=== PATIENT | male | born 1955 | race Caucasian/White ===

== ENCOUNTER 2016-05-02 10:24 | Day surgery (SDC) | payer OTHER ==
[2016-04-30 15:35] VITALS: BMI 31.3
[~2016-05-02 10:24] MED LIST: ALPRAZolam 0.25 MG TAB PO PRN; ASPIRIN 325 MG TAB PO STA; SODIUM CHLORIDE 0.9% 1,000 ML in EMPTY BAG 1 BAG IV ONE
[2016-05-02] MEDS ORDERED: ASPIRIN 81 MG CHEW ONE (10:50)
[2016-05-02] MEDS ORDERED: SODIUM CHLORIDE 0.9% 1,000 ML IV ONE (10:50)
[2016-05-02] MEDS ORDERED: HYDROmorphone 1 MG/ML 1 ML SYRINGE ONE (10:59)
[2016-05-02] MEDS ORDERED: HYDROmorphone 1 MG/ML 1 ML SYRINGE IVP STA (11:00)
[2016-05-02 11:12] LABS: INR 1.3 (<1.1)
[2016-05-02] MEDS ORDERED: IV FLUID CONTINUATION 1,000 ML IV ONE (11:20)
[2016-05-02] MEDS ORDERED: MIDAZOLAM 2 MG/2 ML VIAL IV ONE (11:41)
[2016-05-02] MEDS ORDERED: HYDROmorphone 2 MG/ML 1 ML SYRINGE IV ONE (11:46)
[2016-05-02] MEDS ORDERED: LIDOCAINE 2% INJ 20 MG/ML SQ ONE (11:46)
[2016-05-02] MEDS ORDERED: IODIXANOL 320 MG/ML 100 ML INTRAARTER ONE (12:20)
[2016-05-02] MEDS ORDERED: SODIUM CHLORIDE 0.9% 1,000 ML IV SCH (12:30)
[2016-05-02 13:36] VITALS: RESP 16; TEMP 97.6
[2016-05-02] MEDS ORDERED: HYDROmorphone 1 MG/ML 1 ML SYRINGE IVP PRN (14:59)
[2016-05-02 15:47] VITALS: PULSE 65
[2016-05-02 16:18] VITALS: BP 138/76
--- NOTE | 2016-05-02 21:39 | PCN ---
DATE OF PROCEDURE: 05/02/2016 PERFORMING PHYSICIAN: Martinez Koenig M.D., laborer plumbing. PROCEDURES PERFORMED: 1. Abdominal aortogram. 2. Bilateral lower extremity runoff. 3. Selective right superficial femoral artery angiogram. 4. Selective right mypfl-xvo-mmip angiogram. INDICATION: This is a pleasant 60-year-old gentleman who is known to have severe peripheral arterial disease who underwent several months ago angioplasty and stenting of the right SFA. He started experiencing right leg discomfort again and he underwent an arterial duplex study which showed in-stent restenosis of the right SFA stent. APPROACH: Left common femoral artery. COMPLICATIONS: None. LEVEL OF SEDATION: Moderate. PROCEDURE DESCRIPTION: After obtaining informed consent, the patient was brought to the cardiac clinical laboratory medical director. The left common femoral artery was cannulated using micropuncture technique. The micropuncture wire passed easily, then I placed a 5 Mongolian sheath in the left common femoral artery. Subsequently I did an abdominal aortogram and bilateral lower extremity runoff using a 5 Mongolian pigtail catheter which was initially placed at the level of the renal arteries, then it was pulled above the bifurcation of the aorta to right and left common iliac arteries. After that I selected the right SFA using 5 Mongolian RIM catheter with 0.035 Advantage wire. I did selective right SFA angiogram and selective right terzh-hmn-wwmf angiogram. SELECTIVE PERIPHERAL ANGIOGRAM: 1. Abdominal aorta appeared to be calcified with mild to moderate diffuse disease only. 2. Common iliac arteries. The right and left common iliac arteries appeared to have mild disease only. 3. Internal iliac arteries. The right and left internal iliac arteries appeared to be patent. 4. External iliac arteries. The right and left external iliac arteries appeared to have mild disease only. 5. SFA. The right SFA appeared to have severe in-stent restenosis involving the proximal portion. The left SFA is occluded from the ostium and reconstitutes by the popliteal. 6. Popliteals. The right popliteal just distal to the stent appeared to have another tight lesion in the range of 70% to 80%. The left popliteal appeared to have a lesion in the range of 70%. 7. Below the knee. The vessels below the knee were poorly visualized. I did selective right ktqah-aow-drpj angiogram. There was one-vessel runoff below the knee with posterior tibia artery, which appeared to have a tight lesion in the proximal portion. CONCLUSION: 1. Mild to moderate aortoiliac disease. 2. Severe in-stent restenosis involving the right SFA stent. 3. Severe disease involving the right popliteal. 4. One-vessel runoff below the knee on the right side with posterior tibial artery which has severe disease in the proximal portion of it. POST-PROCEDURE MANAGEMENT: The patient will be scheduled to undergo EXTENSION SERVICE SPECIALIST of the right SFA in the next week or so.
--- NOTE | 2016-05-05 12:28 | IR ---
EXAMINATION TYPE: IR angio abdominal w runoff DATE OF EXAM: 05/02/2016 12:57 PM COMPARISON: NONE HISTORY: Peripheral vascular occlusive disease. Fluoroscopy was applied to the referring clinician. See dictated report from cardiology.
== END 2016-05-02 18:56 | disposition home or self-care (01) ==
LOC: CATHCVL 10:24 → 3OBS 12:35 → CATHCVL 18:56
PROVIDERS: ATTEND Internal Medicine Interventional Cardiology
DX: I70.211 Atherosclerosis of native arteries of extremities with intermittent claudication, right leg (principal); I48.2 Chronic atrial fibrillation; T82.856A Stenosis of peripheral vascular stent, initial encounter; E78.5 Hyperlipidemia, unspecified; C92.Z0 Other myeloid leukemia not having achieved remission; E78.2 Mixed hyperlipidemia; I10 Essential (primary) hypertension; I25.119 Atherosclerotic heart disease of native coronary artery with unspecified angina pectoris; Z87.891 Personal history of nicotine dependence; Z82.49 Family history of ischemic heart disease and other diseases of the circulatory system; Z79.02 Long term (current) use of antithrombotics/antiplatelets; Z79.82 Long term (current) use of aspirin; Z79.899 Other long term (current) drug therapy; Z95.5 Presence of coronary angioplasty implant and graft; Y71.2 Prosthetic and other implants, materials and accessory cardiovascular devices associated with adverse incidents
CPT/HCPCS: 99156; 99157 ×2; 36247; 75625; 75716; 85610; C1769 ×5; C1894; J2001; J2250; J1170 ×2; Q9967

== ENCOUNTER 2016-05-14 12:48 | Day surgery (SDC) | payer OTHER ==
[2016-05-12 10:36] VITALS: BMI 32.1
[2016-05-14] MEDS ORDERED: HYDROmorphone 1 MG/ML 1 ML SYRINGE ONE (13:29)
[2016-05-14 13:37] LABS: Anisocytosis Slight; Basophils % (A) 0 %; CH 29.7; CHCM 32.2; Eosinophils # (A) 0.1 k/uL (0-0.7); Eosinophils % (A) 2 %; HCT 47.2 % (39.0-53.0); HDW 2.62; HGB 15.3 gm/dL (13.0-17.5); Luc # (Auto) 0.23; Luc % (Auto) 3; Lymphocytes # (A) 1.4 k/uL (1.0-4.8); Lymphocytes % (A) 17 %; MCHC 32.3 g/dL (31.0-37.0); MCV 92.9 fL (80.0-100.0); Mean Platelet Volume 6.6; Monocytes # (A) 0.5 k/uL (0-1.0); Monocytes % (A) 6 %; Neutrophils # (A) 5.9 k/uL (1.3-7.7); Neutrophils % (A) 72 %; RBC 5.09 m/uL (4.30-5.90); RDW 16.8 % (11.5-15.5); WBC 8.1 k/uL (3.8-10.6); WBC (Perox) 8.18
[2016-05-14 13:39] LABS: INR 1.2 (<1.1); Prothrombin Time 11.9 sec (9.0-12.0)
[2016-05-14 14:16] LABS: Anion Gap 10 mmol/L; Blood Urea Nitrogen 23 mg/dL (9-20); Calcium 9.5 mg/dL (8.4-10.2); Carbon Dioxide 24 mmol/L (22-30); Chloride 104 mmol/L (98-107); Glucose 88 mg/dL (74-99); Non-African American GFR(MDRD) >60 (>60 ml/min/1.73 sqM); Sodium 138 mmol/L (137-145)
[2016-05-14] MEDS ORDERED: MIDAZOLAM 2 MG/2 ML VIAL IVP ONE (14:35)
[2016-05-14] MEDS ORDERED: LIDOCAINE 2% INJ 20 MG/ML SQ ONE (14:42)
[2016-05-14] MEDS: HYDROmorphone 2 MG/ML 1 ML SYRINGE IV ONE ×2 (14:45→15:22)
[2016-05-14 14:47] LABS: Potassium 5.6 mmol/L (3.5-5.1)
[2016-05-14] MEDS ORDERED: HEPARIN SODIUM 1,000 UNIT/ML VIAL IV ONE (14:49)
[2016-05-14] MEDS: NITROGLYCERIN 1000MCG/10ML SYRINGE INTRAARTER ONE ×2 (15:21→16:09)
[2016-05-14] MEDS ORDERED: CLOPIDOGREL 75 MG TAB PO ONE (16:06)
[2016-05-14] MEDS ORDERED: niCARdipine Syringe (1,000 mcg/10 mL) INTRACORON ONE (16:10)
[2016-05-14] MEDS ORDERED: NON-FORMULARY DRUG (Sildenafil Citrate [Viagra] 100 MG) PO PRN (16:24)
[2016-05-14] MEDS ORDERED: IODIXANOL 320 MG/ML 100 ML INTRAARTER ONE (16:25)
[2016-05-14] MEDS ORDERED: SODIUM CHLORIDE 0.9% 1,000 ML IV SCH (16:30)
[2016-05-14] MEDS ORDERED: amLODIPine 5 MG TAB PO PRN (18:41)
[2016-05-14] MEDS: HYDROmorphone 1 MG/ML 1 ML SYRINGE IVP PRN (19:15)
[2016-05-14] MEDS ORDERED: METOPROLOL TARTRATE 12.5 MG TAB PO SCH (21:00)
[2016-05-14] MEDS ORDERED: ATORVASTATIN 20 MG TAB PO SCH (21:00)
[2016-05-14] MEDS: GABAPENTIN 400 MG CAP PO SCH (21:40)
[2016-05-14] MEDS: CIPROFLOXACIN HCL 500 MG TAB PO SCH (21:41)
[2016-05-14] MEDS ORDERED: ATROPINE SULFATE 0.1 MG/ML 10ML SYRINGE ONE (22:15)
[2016-05-14] MEDS ORDERED: NITROGLYCERIN SL TABS 0.4 MG TAB SUBLINGUAL STA (22:32)
[2016-05-14] MEDS ORDERED: HYDROmorphone 1 MG/ML 1 ML SYRINGE IVP STA (22:32)
[2016-05-15] MEDS: HYDROmorphone 1 MG/ML 1 ML SYRINGE IVP PRN (00:59)
[2016-05-15 03:41] VITALS: PULSE 98
--- NOTE | 2016-05-15 06:13 | PCN ---
DATE OF PROCEDURE: 05/14/2016 PERFORMING PHYSICIAN: Martinez Koenig MD, checker product design. PROCEDURE PERFORMED: 1. Atherectomy of the right popliteal using the CSI device. 2. Successful stenting of the proximal right popliteal using 6.0 x 40 mm self-expandable stent with good angiographic results. 3. Successful balloon angioplasty of the right superficial femoral artery using 6.0 mm x 150 and 6.0 x 120 mm drug-coated balloon with good angiographic results. 4. Selective right SFA angiogram. 5. Selective right popliteal angiogram. 6. Selective right vbcxe-frs-jvhw angiogram. 7. Selective left common femoral artery angiogram. INDICATION: This is a pleasant, 60-year-old gentleman who underwent an angioplasty and stenting of the right SFA several months ago started experiencing right leg discomfort again. He underwent a peripheral angiogram which showed severe in-stent restenosis of the right SFA as well as severe de kellie coronary artery disease involving the right popliteal. He was brought today to undergo an intervention on these 2 arteries. APPROACH: Left common femoral artery. COMPLICATIONS: None. LEVEL OF SEDATION: Conscious sedation was performed and it was for an 1 hour and 40 minutes. PROCEDURE DESCRIPTION: After obtaining an informed consent, the patient was brought to the cardiac lab support tech. The left common femoral artery was cannulated using micropuncture technique under ultrasound guidance. The micropuncture wire passed easily, then I placed an 11 cm 6-Niuean sheath in the left common femoral artery. At that point, anticoagulation was initiated using heparin and the patient was given a total of 10,000 units of heparin IV. Subsequently, I did select the right SFA using a 5-Niuean rim catheter with 0.035 advantage wire. After that, I did exchange my 11 cm sheath into 70 cm sheath, which was 6-Niuean sheath using the advantage wire. The tip of the sheath was positioned in the right external iliac artery. After that, I did exchange my 0.035 advantage wire into a 0.014 Viper wire using an 0.035 CXI catheter. Subsequently, I did selective right SFA angiogram and selective right popliteal angiogram and selective right asckm-zdd-hpym angiogram. Subsequently, I did an atherectomy of the right popliteal using the CSI device where I did atherectomy under low, medium and high speed. Then I did balloon angioplasty using 4.0 x 40 mm AngioSculpt balloon. The following angiogram showed inadequate angiographic results. I decided to stent that area. So I used 6.0 x 40 mm PTX coated balloon expandable stent where the stent was positioned under fluoroscopy guidance and it was deployed. After that, I did balloon angioplasty of the right SFA, where the patient has severe in-stent restenosis where I did balloon angioplasty initially using 6.0 x 200 mm balloon. Then I used 6.0 x 150 and 6.0 x 120 drug-coated balloon. The following angiogram showed an excellent angiographic result without perforation and without dissection with a good flow. Subsequently, I did exchange my 70 cm 6-Niuean sheath into 11 cm 6-Niuean sheath using the advantage wire. Then I did selective left common femoral artery angiogram. The procedure was completed without any complication. POSTPROCEDURE MANAGEMENT: 1. Dual antiplatelet therapy. 2. Risk factor modification. 3. If the patient continues to be symptomatic, I will consider doing an angioplasty of the ostial right profunda and open the right posterior tibial arteries.
--- NOTE | 2016-05-15 06:15 | LTR ---
May 14, 2016 [facility] RE: TobyThomas estrella Primo Dear Joshua: Mr. Thomas Redman underwent successful balloon angioplasty of the right femoral artery and right popliteal with a good angiographic result and without any complication. Thank you for allowing me to participate in his care. Sincerely, TARAH GRANDE MD
[2016-05-15 06:27] LABS: Anisocytosis Slight; Basophils % (A) 0 %; CH 29.5; CHCM 31.3; Eosinophils # (A) 0.1 k/uL (0-0.7); Eosinophils % (A) 1 %; HCT 48.5 % (39.0-53.0); HDW 2.55; HGB 15.2 gm/dL (13.0-17.5); Hypochromasia Slight; Luc # (Auto) 0.24; Luc % (Auto) 2; Lymphocytes # (A) 1.4 k/uL (1.0-4.8); Lymphocytes % (A) 14 %; MCH 29.6 pg (25.0-35.0); MCHC 31.3 g/dL (31.0-37.0); MCV 94.7 fL (80.0-100.0); Mean Platelet Volume 6.6; Monocytes # (A) 0.7 k/uL (0-1.0); Monocytes % (A) 7 %; Neutrophils # (A) 7.8 k/uL (1.3-7.7); Neutrophils % (A) 76 %; RBC 5.13 m/uL (4.30-5.90); RDW 16.8 % (11.5-15.5); WBC 10.3 k/uL (3.8-10.6); WBC (Perox) 10.73
[2016-05-15 06:48] LABS: Anion Gap 10 mmol/L; Blood Urea Nitrogen 17 mg/dL (9-20); Calcium 9.3 mg/dL (8.4-10.2); Carbon Dioxide 29 mmol/L (22-30); Chloride 103 mmol/L (98-107); Glucose 91 mg/dL (74-99); Non-African American GFR(MDRD) >60 (>60 ml/min/1.73 sqM); Potassium 4.4 mmol/L (3.5-5.1); Sodium 142 mmol/L (137-145)
[2016-05-15] MEDS ORDERED: HYDROmorphone 1 MG/ML 1 ML SYRINGE IVP STA (07:02)
[2016-05-15] MEDS: GABAPENTIN 400 MG CAP PO SCH (08:21)
[2016-05-15] MEDS: CIPROFLOXACIN HCL 500 MG TAB PO SCH (08:21)
[2016-05-15] MEDS ORDERED: ASPIRIN 81 MG CHEW PO SCH (09:00)
[2016-05-15] MEDS ORDERED: CLOPIDOGREL 75 MG TAB PO SCH (09:00)
[2016-05-15 10:26] VITALS: BP 151/82; RESP 18; TEMP 97.1
--- NOTE | 2016-05-15 15:20 | IR ---
Fluoroscopy HISTORY: Pain 28.4 minutes fluoroscopy time supplied to the referring clinician. 556 intraoperative C-arm images d ocument the procedure. See dictated report from cardiology.
--- NOTE | 2016-05-17 08:07 | DS ---
DATE OF ADMISSION: 05/14/2016 DATE OF DISCHARGE: 05/15/2016 BRIEF HISTORY: This is a very pleasant 60-year-old gentleman who sees Dr. Saima Zayas as an outpatient, who also I follow-up with regarding BAV who underwent several months ago and as a matter of fact in November 2015 successful crossing chronic total occlusion of the right superficial femoral artery along with successful stenting of the right SFA with a good angiographic results. Patient has done well until about a few weeks ago when he started experiencing resting pain in the right foot. He underwent a peripheral angiogram which showed severe in-stent restenosis involving the right SFA as well as severe de kellie coronary artery disease involving the right popliteal. He was admitted to the hospital and underwent successful balloon angioplasty of the right SFA along with successful stenting of the right SFA as well. The procedure was performed from left groin, which is soft and nontender and without any bruises. The patient is going to be discharged home on dual antiplatelet therapy and I will follow up with the patient next week in the office.
== END 2016-05-15 11:50 | disposition home or self-care (01) ==
LOC: CATHCVL 12:48 → 6SEL 16:19 → CATHCVL 05-15 11:50
PROVIDERS: ATTEND Internal Medicine Interventional Cardiology
DX: I70.211 Atherosclerosis of native arteries of extremities with intermittent claudication, right leg (principal); Z95.820 Peripheral vascular angioplasty status with implants and grafts; I99.9 Unspecified disorder of circulatory system; Z82.49 Family history of ischemic heart disease and other diseases of the circulatory system; I10 Essential (primary) hypertension; E78.5 Hyperlipidemia, unspecified; Z87.891 Personal history of nicotine dependence; Z79.2 Long term (current) use of antibiotics; Z79.02 Long term (current) use of antithrombotics/antiplatelets; Z79.82 Long term (current) use of aspirin; Z79.899 Other long term (current) drug therapy
CPT/HCPCS: 37227; 80048 ×2; 85025 ×2; 85610; 99152; 99153 ×6; C1894 ×2; C1714; C1769 ×6; C1725 ×3; C2623 ×2; C1874; J2001; J2250; J1170 ×3; Q9967; J1644

== ENCOUNTER 2016-06-11 12:28 | Observation (INO) | payer OTHER ==
[2016-06-10 10:00] VITALS: BMI 31.3
[2016-06-11 13:11] LABS: INR 1.6 (<1.1); Prothrombin Time 15.6 sec (9.0-12.0)
[2016-06-11] MEDS ORDERED: HYDROmorphone 1 MG/ML 1 ML SYRINGE ONE (13:27)
[2016-06-11] MEDS: fentaNYL (PF) 50 MCG/ML 2 ML AMP IV ONE ×2 (14:45→16:28)
[2016-06-11] MEDS ORDERED: MIDAZOLAM 2 MG/2 ML VIAL IV ONE (14:46)
[2016-06-11] MEDS ORDERED: LIDOCAINE 2% INJ 20 MG/ML SQ ONE (14:56)
[2016-06-11] MEDS: HYDROmorphone 2 MG/ML 1 ML SYRINGE IV ONE ×2 (14:56→15:08)
[2016-06-11] MEDS: NITROGLYCERIN 1000MCG/10ML SYRINGE INTRAARTER ONE ×6 (15:37→16:47)
[2016-06-11] MEDS: niCARdipine Syringe (1,000 mcg/10 mL) IV ONE ×5 (15:49→16:47)
[2016-06-11] MEDS ORDERED: NITROGLYCERIN 1000MCG/10ML SYRINGE INTRAARTER ONE (16:40)
[2016-06-11] MEDS ORDERED: IOHEXOL 350 MG/ML 100 ML BOTTLE INJ ONE (16:48)
[2016-06-11] MEDS ORDERED: DOCUSATE 100 MG CAP PO PRN (16:58)
[2016-06-11] MEDS ORDERED: ACETAMINOPHEN TAB 500 MG TAB PO PRN (16:58)
[2016-06-11] MEDS ORDERED: NON-FORMULARY DRUG (Sildenafil Citrate [Viagra] 100 MG) PO PRN (16:58)
[2016-06-11] MEDS ORDERED: CLOPIDOGREL 75 MG TAB PO ONE (17:07)
[2016-06-11] MEDS ORDERED: SODIUM CHLORIDE 0.9% 1,000 ML IV SCH (17:15)
[2016-06-11] MEDS: HYDROmorphone 1 MG/ML 1 ML SYRINGE IVP PRN ×3 (19:54→23:59)
[2016-06-11 20:01] VITALS: RESP 16
[2016-06-11] MEDS ORDERED: ATORVASTATIN 20 MG TAB PO SCH (21:00)
[2016-06-11] MEDS ORDERED: CLOPIDOGREL 75 MG TAB PO SCH (21:00)
[2016-06-11] MEDS: GABAPENTIN 400 MG CAP PO SCH (22:05)
[2016-06-11] MEDS: METOPROLOL TARTRATE 12.5 MG TAB PO SCH (22:05)
[2016-06-11] MEDS ORDERED: ATROPINE SULFATE 0.1 MG/ML 10ML SYRINGE ONE (23:41)
[2016-06-12] MEDS: HYDROmorphone 1 MG/ML 1 ML SYRINGE IVP PRN ×4 (01:59→09:45)
[2016-06-12 06:18] LABS: Anisocytosis Slight; Basophils % (A) 0 %; CH 30.4; Eosinophils # (A) 0.1 k/uL (0-0.7); Eosinophils % (A) 1 %; HDW 2.58; HGB 14.7 gm/dL (13.0-17.5); Luc # (Auto) 0.31; Luc % (Auto) 3; Lymphocytes # (A) 1.8 k/uL (1.0-4.8); Lymphocytes % (A) 17 %; MCH 29.9 pg (25.0-35.0); MCHC 31.2 g/dL (31.0-37.0); MCV 95.7 fL (80.0-100.0); Mean Platelet Volume 6.6; Monocytes # (A) 0.6 k/uL (0-1.0); Monocytes % (A) 6 %; Neutrophils # (A) 7.8 k/uL (1.3-7.7); Neutrophils % (A) 74 %; RBC 4.91 m/uL (4.30-5.90); RDW 16.9 % (11.5-15.5); WBC 10.6 k/uL (3.8-10.6); WBC (Perox) 11.07
[2016-06-12 06:29] LABS: Anion Gap 13 mmol/L; Blood Urea Nitrogen 17 mg/dL (9-20); Calcium 9.8 mg/dL (8.4-10.2); Carbon Dioxide 31 mmol/L (22-30); Chloride 100 mmol/L (98-107); Glucose 100 mg/dL (74-99); Non-African American GFR(MDRD) >60 (>60 ml/min/1.73 sqM); Potassium 3.8 mmol/L (3.5-5.1); Sodium 144 mmol/L (137-145)
--- NOTE | 2016-06-12 06:54 | PTCA ---
DATE OF SERVICE: 06/11/2016 PERCUTANEOUS PERIPHERAL INTERVENTION PERFORMING PHYSICIAN: Martinez Koenig MD, construction engineer. PROCEDURE PERFORMED: 1. Selective right SFA angiogram. 2. Selective right popliteal angiogram. 3. Selective right posterior tibial artery angiogram. 4. Successful balloon angioplasty of the distal right posterior tibial artery. 5. Successful stenting of the proximal right posterior tibial artery. 6. Selective left common femoral artery angiogram. INDICATION: This is a pleasant a 60-year-old gentleman who was struggling with critical limb ischemia and resting pain involving the right foot. He underwent successful balloon angioplasty and stenting of the right SFA and he was brought today to undergo balloon angioplasty of the right posterior tibial artery. APPROACH: Left common femoral artery. COMPLICATIONS: None. LEVEL OF SEDATION: Moderate with sedation length of 2 hours and 15 minutes. PROCEDURE DESCRIPTION: After obtaining an informed consent, the patient was brought to the cardiac dental laboratory technician apprentice. The left common femoral artery was cannulated using micropuncture technique. Micropuncture wire passed easily. Then I placed a 6-Danish sheath in the left common femoral artery. Subsequently, I did selective right SFA using an 0.035 advantage wire with a 5-Danish rim catheter. The 0.035 advantage wire was pushed to the right SFA. Subsequently, I did exchange my 11 cm 6-Danish sheath into 70 cm Raabe sheath over the advantage wire and the tip of the sheath was positioned in the right common femoral artery. At that point, anticoagulation was initiated using heparin and the patient was given a weight -based heparin with ACT monitoring during the procedure. Subsequently, I did selective right SFA, selective right popliteal and selective right klcjf-hqj-krgv angiogram. Then I decided balloon angioplasty of the right posterior tibial artery. At that point, my 0.035 advantage wire was exchanged to a 0.014 advantage wire using an 0.035 Quick-Cross catheter. Then I was able to cross the multiple lesions in the right posterior tibial artery. At that point, I did balloon angioplasty of the proximal right posterior tibial artery, initially using 2.0 and then 2.5 balloon. The following angiogram showed severe residual dissection with severe residual disease with possible dissection. At that point, I decided to stent that lesion. I did deploy 2.5 x 38 mm Xience LAYLA, where the stent was positioned under fluoroscopy guidance and deployed under its nomina pressure under 10 atmospheres for 30 seconds. The following angiogram showed good angiographic results. For the lesion in the distal left posterior tibia artery, I did balloon angioplasty using 2.5 x 40 mm balloon which was advanced over the advantage wire and positioned under fluoroscopy guidance and inflated under its nominal pressure. The following angiogram after I gave the patient nicardipine and nitro showed good angiographic results. At that point, I decided to stop. Subsequently, I did exchange my 70 cm 6-Danish sheath into 11 cm 6 Danish sheath over the advantage wire. I did selective left common femoral artery angiogram before the procedure was completed. POSTPROCEDURE MANAGEMENT: 1. Dual antiplatelet therapy. 2. Risk factor modification. 3. Follow up with the patient.
[2016-06-12] MEDS: GABAPENTIN 400 MG CAP PO SCH (08:15)
[2016-06-12] MEDS: METOPROLOL TARTRATE 12.5 MG TAB PO SCH (08:16)
[2016-06-12] MEDS ORDERED: FUROSEMIDE 20 MG TAB PO SCH (09:00)
[2016-06-12] MEDS ORDERED: ASPIRIN 325 MG TAB PO SCH (09:00)
[2016-06-12] MEDS ORDERED: CLOPIDOGREL 75 MG TAB PO SCH (09:00)
--- NOTE | 2016-06-12 09:23 | DS ---
DATE OF ADMISSION: 06/12/2016 DATE OF DISCHARGE: 06/12/2016 BRIEF HISTORY: This is a pleasant 60-year-old gentleman who sees Dr. Saima Zayas as an outpatient, who is known to have severe peripheral arterial disease and status post stenting of the right SFA, continues to have the critical limb ischemia involving the right foot. He was admitted to the hospital yesterday and underwent successful balloon angioplasty and stenting of the right anterior tibial artery with a good angiographic result and without any complication. The procedure was performed from the left groin, which seems to be soft and nontender and without any bruises. The patient is going to be discharged home on dual antiplatelet therapy and I will follow up with the patient as an outpatient in the office.
[2016-06-12 11:41] VITALS: BP 129/72; PULSE 73; TEMP 97.9
--- NOTE | 2016-06-13 11:37 | IR ---
EXAMINATION TYPE: IR yacht captain tibioperoneal branchs DATE OF EXAM: 06/11/2016 5:22 PM COMPARISON: NONE HISTORY: Peripheral vascular occlusive disease. Fluoroscopy was applied to the referring clinician. See dictated report from cardiology.
== END 2016-06-12 14:37 | disposition home or self-care (01) ==
LOC: CATHCVL 12:28 → 6SEL 18:14 → CATHCVL 06-12 01:32 → 6SEL 06-12 01:33
PROVIDERS: ADMIT Internal Medicine Interventional Cardiology; ATTEND Internal Medicine Interventional Cardiology
DX: I70.221 Atherosclerosis of native arteries of extremities with rest pain, right leg (principal); I77.1 Stricture of artery; I25.10 Atherosclerotic heart disease of native coronary artery without angina pectoris; I48.2 Chronic atrial fibrillation; I10 Essential (primary) hypertension; Z82.49 Family history of ischemic heart disease and other diseases of the circulatory system; Z79.82 Long term (current) use of aspirin; Z79.899 Other long term (current) drug therapy; Z79.891 Long term (current) use of opiate analgesic; Z79.01 Long term (current) use of anticoagulants; E78.2 Mixed hyperlipidemia; I30.0 Acute nonspecific idiopathic pericarditis; Z87.891 Personal history of nicotine dependence; Z95.5 Presence of coronary angioplasty implant and graft
CPT/HCPCS: 99152; 99153 ×7; 37230; 85347; 80048; 85025; 85610; G0378; C1894 ×2; C1769 ×6; C1725 ×2; C1887; C1874; J2001; J2250; J1170 ×3; Q9967; J3010; J1644; 37225; 96374; 96376

== ENCOUNTER 2016-10-03 21:41 | Emergency (ER) | payer OTHER ==
[2016-10-03] MEDS ORDERED: SODIUM CHLORIDE 0.9% 1,000 ML IV ONE (21:53)
[2016-10-03] MEDS ORDERED: HUMAN PROTHROMBIN COMPLX IV ONE (21:55)
[2016-10-03] MEDS ORDERED: PHYTONADIONE 10 MG in SODIUM CHLORIDE 0.9% 50 ML IVPB STA (21:58)
--- NOTE | 2016-10-03 21:59 | ED ---
General Adult HPI - General Chief complaint: Fall Stated complaint: Fall. Head Injury Time Seen by Provider: 10/03/16 21:53 Source: patient, family, RN notes reviewed, old records reviewed Mode of arrival: wheelchair - History of Present Illness Initial comments: This is a 61-year-old male here for evaluation. Patient presents today for evaluation of a slip and fall and is positive Coumadin. Patient admits positive a call consumption tonight. Patient's fall was mechanical, traumatic fall secondary to intoxication, fell backwards hitting his head with no loss of eating both at the scene and currently. Patient does not feel lightheaded dizzy or weak, and no 4, GCS 15. Patient walked into emergency room with . Denies any other injury pain - Related Data Home Medications Medication Instructions Recorded Confirmed Warfarin [Coumadin] 5 mg PO TH 12/12/13 10/03/16 Gabapentin [Neurontin] 800 mg PO TID 09/14/15 10/03/16 Metoprolol Tartrate [Lopressor] 12.5 mg PO BID 09/14/15 10/03/16 Sildenafil Citrate [Viagra] 100 mg PO ONCE PRN 09/14/15 10/03/16 Warfarin [Coumadin] 2.5 mg PO SUMOTUWEFRSA 10/17/15 10/03/16 Aspirin 81 mg PO DAILY 04/30/16 10/03/16 oxyCODONE HCL 10 mg PO Q4H PRN 05/12/16 10/03/16 Clopidogrel [Plavix] 75 mg PO DAILY 06/10/16 10/03/16 Atorvastatin [Lipitor] 80 mg PO HS 10/03/16 10/03/16 Allergies Allergy/AdvReac Type Severity Reaction Status Date / Time No Known Allergies Allergy Verified 10/03/16 22:21 Review of Systems ROS Statement: Those systems with pertinent positive or pertinent negative responses have been documented in the HPI. ROS Other: All systems not noted in ROS Statement are negative. Past Medical History Past Medical History: Atrial Fibrillation, Coronary Artery Disease (CAD), Cancer , Hyperlipidemia, Vascular Disorder Additional Past Medical History / Comment(s): ACUTE MYELOID LEUKEMIA DIAGNOSED JULY 2013. LAST CHEMO APPROX 2 YRS AGO., PVD, STATES RIGHT FOOT SWOLLEN WITH SORES ON GREAT TOE ,2ND AND 3RD TOE, RIGHT FOOT PAINFUL. , STATES SLIGHT SWELLING IN LEFT LOWER LEG., SEE CARDIOLOGY H & P. History of Any Multi-Drug Resistant Organisms: None Reported Past Surgical History: Heart Catheterization With Stent, Hernia Repair Additional Past Surgical History / Comment(s): COLONOSCOPY, STATES 2 HEART CATHS WITH STENTS, BONE MARROW BX'S, PICC insertion x 2. bone marrow transplant , AORTAGRAM, ARTHRECTOMY WITH STENT AND BALLOON ANGIOPLASTY RIGHT LEG (05/14/2016 ) Past Anesthesia/Blood Transfusion Reactions: No Reported Reaction Date of Last Stent Placement:: 1999 Past Psychological History: Anxiety, Depression Smoking Status: Former smoker Past Alcohol Use History: None Reported Past Drug Use History: Marijuana - Past Family History Father Family Medical History: Coronary Artery Disease (CAD) Brother(s) Family Medical History: Coronary Artery Disease (CAD) Sister(s) Family Medical History: CVA/TIA Mother Family Medical History: Hypertension Additional Family Medical History / Comment(s): BLOOD TRANSFUSION REACTION General Exam - General Exam Comments Initial Comments: GCS 15 General appearance: alert, in no apparent distress Head exam: Present: normocephalic, normal inspection. Absent: atraumatic ( occipital laceration 8cm, brisk bleeding) Eye exam: Present: normal appearance, PERRL, EOMI. Absent: scleral icterus, conjunctival injection, periorbital swelling ENT exam: Present: normal exam, mucous membranes moist Neck exam: Present: normal inspection. Absent: tenderness, meningismus, lymphadenopathy Respiratory exam: Present: normal lung sounds bilaterally. Absent: respiratory distress, wheezes, rales, rhonchi, stridor Cardiovascular Exam: Present: regular rate, normal rhythm, normal heart sounds. Absent: systolic murmur, diastolic murmur, rubs, gallop, clicks GI/Abdominal exam: Present: soft, normal bowel sounds. Absent: distended, tenderness, guarding, rebound, rigid Extremities exam: Present: normal inspection, full ROM, normal capillary refill. Absent: tenderness, pedal edema, joint swelling, calf tenderness Back exam: Present: normal inspection Neurological exam: Present: alert, oriented X3, CN II-XII intact Psychiatric exam: Present: normal affect, normal mood Skin exam: Present: warm, dry, intact, normal color. Absent: rash Course Vital Signs 10/03/16 10/03/16 21:42 22:58 Temperature 97.0 F L Pulse Rate 91 90 Respiratory 16 18 Rate Blood Pressure 134/67 111/63 O2 Sat by Pulse 100 100 Oximetry - Reevaluation(s) Reevaluation #1: 10/03/16 21:57 significant blood loss, positive EtOH, GCS 15, on Coumadin Reevaluation #2: 10/03/16 23:20 At this time bleeding is stopped Procedures - Laceration Laceration #1 Consent Obtained: verbal consent Time Out Performed: Yes Indication: laceration Site: scalp Size (cm): 8 Description: linear Depth: simple, single layer (Stpble) Pre-repair: wound explored, irrigated extensively Type of Sutures: other (staple) Size of Sutures: other (staple) Number of Sutures: 10 Technique: simple, interrupted Complications: pain Patient Tolerated Procedure: well Medical Decision Making - Medical Decision Making 58 female the ER for evaluation of fall, falling scalp laceration, patient is given vitamin K here in the ER, after prolonged: Pressure staple application and irrigated redressing, bleeding is stopped, patient is a reversal of anticoagulation at this time. Patient will be discharged - Lab Data Result diagrams: 10/03/16 22:05 10/03/16 22:05 Lab Results 10/03/16 10/03/16 10/03/16 Range/Units 22:05 22:05 22:05 WBC 8.4 (3.8-10.6) k/uL RBC 4.65 (4.30-5.90) m/uL Hgb 12.7 L (13.0-17.5) gm/dL Hct 39.0 (39.0-53.0) % MCV 83.9 (80.0-100.0) fL MCH 27.3 (25.0-35.0) pg MCHC 32.6 (31.0-37.0) g/dL RDW 17.7 H (11.5-15.5) % Plt Count 302 (150-450) k/uL Neutrophils % 53 % Lymphocytes % 36 % Monocytes % 4 % Eosinophils % 3 % Basophils % 1 % Neutrophils # 4.4 (1.3-7.7) k/uL Lymphocytes # 3.0 (1.0-4.8) k/uL Monocytes # 0.4 (0-1.0) k/uL Eosinophils # 0.2 (0-0.7) k/uL Basophils # 0.1 (0-0.2) k/uL Hypochromasia Moderate Anisocytosis Slight PT 23.0 H (9.0-12.0) sec INR 2.4 (<1.1) APTT 31.1 H (22.0-30.0) sec Sodium 142 (137-145) mmol/L Potassium 3.7 (3.5-5.1) mmol/L Chloride 104 (98-107) mmol/L Carbon Dioxide 25 (22-30) mmol/L Anion Gap 13 mmol/L BUN 11 (9-20) mg/dL Creatinine 0.61 L (0.66-1.25) mg/dL Est GFR (MDRD) Af Amer >60 (>60 ml/min/1.73 sqM) Est GFR (MDRD) Non-Af >60 (>60 ml/min/1.73 sqM) Glucose 90 (74-99) mg/dL Calcium 9.1 (8.4-10.2) mg/dL Total Bilirubin 0.4 (0.2-1.3) mg/dL AST 20 (17-59) U/L ALT 23 (21-72) U/L Alkaline Phosphatase 101 (38-126) U/L Total Protein 7.0 (6.3-8.2) g/dL Albumin 4.0 (3.5-5.0) g/dL - Radiology Data Radiology results: report reviewed (CT brain C-spine is negative for traumatic injury), image reviewed Disposition Clinical Impression: Fall, Alcohol intoxication, Head injury, Scalp laceration Disposition: HOME SELF-CARE Condition: Good Instructions: Staple Care (ED), Laceration (ED), Head Injury (ED) Referrals: Eugenio Murillo DO [Primary Care Provider] - 1-2 days
[2016-10-03 22:29] LABS: ALT 23 U/L (21-72); AST 20 U/L (17-59); Alkaline Phosphatase 101 U/L (38-126); Anion Gap 13 mmol/L; Blood Urea Nitrogen 11 mg/dL (9-20); Calcium 9.1 mg/dL (8.4-10.2); Carbon Dioxide 25 mmol/L (22-30); Chloride 104 mmol/L (98-107); Glucose 90 mg/dL (74-99); INR 2.4 (<1.1); Non-African American GFR(MDRD) >60 (>60 ml/min/1.73 sqM); Partial Thromboplastin Time 31.1 sec (22.0-30.0); Potassium 3.7 mmol/L (3.5-5.1); Sodium 142 mmol/L (137-145); Total Bilirubin 0.4 mg/dL (0.2-1.3)
[2016-10-03 22:30] LABS: Anisocytosis Slight; Basophils # (A) 0.1 k/uL (0-0.2); Basophils % (A) 1 %; CH 25.8; CHCM 30.8; Eosinophils # (A) 0.2 k/uL (0-0.7); Eosinophils % (A) 3 %; HDW 3.03; HGB 12.7 gm/dL (13.0-17.5); Hypochromasia Moderate; Luc # (Auto) 0.24; Luc % (Auto) 3; Lymphocytes % (A) 36 %; MCH 27.3 pg (25.0-35.0); MCHC 32.6 g/dL (31.0-37.0); MCV 83.9 fL (80.0-100.0); Mean Platelet Volume 6.9; Monocytes # (A) 0.4 k/uL (0-1.0); Monocytes % (A) 4 %; Neutrophils # (A) 4.4 k/uL (1.3-7.7); Neutrophils % (A) 53 %; RBC 4.65 m/uL (4.30-5.90); RDW 17.7 % (11.5-15.5); WBC 8.4 k/uL (3.8-10.6); WBC (Perox) 7.78
--- NOTE | 2016-10-03 22:38 | CT ---
Exam: CT HEAD Without Contrast History: EtOH. Patient on blood thinners. Fall from standing. Comparison: None provided. Technique: Continuous axial images of the head were obtained without intravenous contrast. Coronal and sagittal reformatting was provided. Findings: No intracranial hemorrhage or mass effect. Ventricular system and sulci are symmetric. Orbits and partially imaged paranasal sinuses are unremarkable. Right vertex scalp hematoma without underlying skull fracture Impression: No intracranial hemorrhage or mass effect. CTDI vol = 60.30 mGy DLP = 1119.00 mGycm One or more of the following dose reduction techniques were used: automated exposure control, adjustment of the mA and/or kV according to patient size, use of iterative reconstruction technique. Exam: CT C SPINE Without Contrast History: Trauma. Comparison: None provided. Technique: Continuous axial images of the cervical spine were obtained without intravenous contrast. Coronal and sagittal reformatting was provided. Findings: No acute fracture or dislocation. Straightening of the cervical lordosis may be due to muscle spasm or positioning. No high-grade spinal canal or neural foraminal osseous encroachment. Atlantodens interval is unremarkable. Multi-level degenerative spondylosis. Limited by motion. Impression: No acute displaced fracture. CTDI vol = 16.40 mGy DLP = 322.40 mGycm One or more of the following dose reduction techniques were used: automated exposure control, adjustment of the mA and/or kV according to patient size, use of iterative reconstruction technique.
[2016-10-03 22:59] VITALS: RESP 18
[2016-10-03 23:39] VITALS: BP 103/58; PULSE 77; TEMP 97.4
== END 2016-10-03 23:40 | disposition home or self-care (01) ==
LOC: EC 21:41
DX: F10.129 Alcohol abuse with intoxication, unspecified (principal); S01.01XA Laceration without foreign body of scalp, initial encounter; S09.90XA Unspecified injury of head, initial encounter; Y90.9 Presence of alcohol in blood, level not specified; E78.5 Hyperlipidemia, unspecified; C92.Z0 Other myeloid leukemia not having achieved remission; Z98.61 Coronary angioplasty status; I73.9 Peripheral vascular disease, unspecified; F41.9 Anxiety disorder, unspecified; F32.9 Major depressive disorder, single episode, unspecified; I25.10 Atherosclerotic heart disease of native coronary artery without angina pectoris; Z94.81 Bone marrow transplant status; Z79.01 Long term (current) use of anticoagulants; Z79.82 Long term (current) use of aspirin; I48.91 Unspecified atrial fibrillation; Z92.21 Personal history of antineoplastic chemotherapy; Z87.891 Personal history of nicotine dependence; Z79.899 Other long term (current) drug therapy
CPT/HCPCS: 12004; 99284; 96365; 96361; 36415; 86900; 86901; 80053; 85025; 85610; 85730; 86850; 72125; 70450; J3430

== ENCOUNTER 2016-10-26 11:12 | Inpatient (IN) | payer OTHER ==
[2016-10-26] MEDS ORDERED: IV VANCOMYCIN PER PHARMACY 1 EACH MISC MISCELLANE PRN (11:35)
--- NOTE | 2016-10-26 11:37 | ED ---
General Adult HPI - General Chief complaint: Extremity Problem,Nontraumatic Stated complaint: knee infection Time Seen by Provider: 10/26/16 11:23 Source: patient, family, RN notes reviewed Mode of arrival: wheelchair Limitations: physical limitation - History of Present Illness Initial comments: Patient is a pleasant 61-year-old male presenting to the emergency Department with right knee redness. Symptoms started 5 days ago. Symptoms worsened since that time. Patient was started on Keflex 5 days ago and recently increased the dose. Symptoms increase despite this. Patient did have a fever at onset, none since then. Discomfort increases with touch and movement. No trauma to this region. Patient did just get over a shingles infection of the right thigh. No calf swelling or discomfort. - Related Data Home Medications Medication Instructions Recorded Confirmed Warfarin [Coumadin] 5 mg PO TH 12/12/13 10/03/16 Gabapentin [Neurontin] 800 mg PO TID 09/14/15 10/03/16 Metoprolol Tartrate [Lopressor] 12.5 mg PO BID 09/14/15 10/03/16 Sildenafil Citrate [Viagra] 100 mg PO ONCE PRN 09/14/15 10/03/16 Warfarin [Coumadin] 2.5 mg PO SUMOTUWEFRSA 10/17/15 10/03/16 Aspirin 81 mg PO DAILY 04/30/16 10/03/16 oxyCODONE HCL 10 mg PO Q4H PRN 05/12/16 10/03/16 Clopidogrel [Plavix] 75 mg PO DAILY 06/10/16 10/03/16 Atorvastatin [Lipitor] 80 mg PO HS 10/03/16 10/03/16 Allergies Allergy/AdvReac Type Severity Reaction Status Date / Time No Known Allergies Allergy Verified 10/26/16 11:17 Review of Systems ROS Statement: Those systems with pertinent positive or pertinent negative responses have been documented in the HPI. ROS Other: All systems not noted in ROS Statement are negative. 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 LAST CHEMO APPROX 2 YRS AGO., PVD, STATES RIGHT FOOT SWOLLEN WITH SORES ON GREAT TOE ,2ND AND 3RD TOE, RIGHT FOOT PAINFUL. , STATES SLIGHT SWELLING IN LEFT LOWER LEG., SEE CARDIOLOGY H & P. History of Any Multi-Drug Resistant Organisms: None Reported Past Surgical History: Heart Catheterization With Stent, Hernia Repair Additional Past Surgical History / Comment(s): COLONOSCOPY, STATES 2 HEART CATHS WITH STENTS, BONE MARROW BX'S, PICC insertion x 2. bone marrow transplant , AORTAGRAM, ARTHRECTOMY WITH STENT AND BALLOON ANGIOPLASTY RIGHT LEG (05/14/2016 ) Past Anesthesia/Blood Transfusion Reactions: No Reported Reaction Date of Last Stent Placement:: 1999 Past Psychological History: Anxiety, Depression Smoking Status: Former smoker Past Alcohol Use History: None Reported Past Drug Use History: Marijuana - Past Family History Father Family Medical History: Coronary Artery Disease (CAD) Brother(s) Family Medical History: Coronary Artery Disease (CAD) Sister(s) Family Medical History: CVA/TIA Mother Family Medical History: Hypertension Additional Family Medical History / Comment(s): BLOOD TRANSFUSION REACTION General Exam Limitations: physical limitation General appearance: alert, in no apparent distress Head exam: Present: atraumatic Eye exam: Present: normal appearance, PERRL ENT exam: Present: normal oropharynx Neck exam: Present: normal inspection Respiratory exam: Present: normal lung sounds bilaterally Cardiovascular Exam: Present: regular rate, irregular rhythm GI/Abdominal exam: Present: soft. Absent: tenderness Extremities exam: Present: tenderness (Right anterior knee with tenderness and swelling and erythema. Erythema extends from distal upper leg to proximal lower leg. Erythema is mostly anterior as well as swelling. There is minimal involvement posteriorly. No calf tenderness.) Neurological exam: Present: alert Psychiatric exam: Present: normal affect, normal mood Skin exam: Present: rash (Erythema right anterior knee) Course Vital Signs 10/26/16 10/26/16 10/26/16 11:14 12:00 12:17 Temperature 98.0 F 97.8 F Pulse Rate 85 74 69 Respiratory 20 16 18 Rate Blood Pressure 135/69 125/62 125/62 O2 Sat by Pulse 99 98 98 Oximetry - Reevaluation(s) Reevaluation #1: 10/26/16 12:26 Patient does meet sepsis criteria diagnosed at 12:26 PM. Patient and family were updated on results and plan. Dr. keller has been paged for admission for Dr. Murillo. IV antibiotics have been started. Lactic acid and blood cultured and fluid boluses have been ordered. Orthopedics will be consulted for further evaluation. Medical Decision Making - Lab Data Result diagrams: 10/26/16 11:45 10/26/16 11:45 Lab Results 10/26/16 10/26/16 10/26/16 Range/Units 11:45 11:45 11:45 WBC 12.2 H (3.8-10.6) k/uL RBC 4.00 L (4.30-5.90) m/uL Hgb 11.1 L (13.0-17.5) gm/dL Hct 35.2 L (39.0-53.0) % MCV 88.1 (80.0-100.0) fL MCH 27.7 (25.0-35.0) pg MCHC 31.4 (31.0-37.0) g/dL RDW 19.4 H (11.5-15.5) % Plt Count 328 (150-450) k/uL Neutrophils % 71 % Lymphocytes % 12 % Monocytes % 6 % Eosinophils % 8 % Basophils % 0 % Neutrophils # 8.6 H (1.3-7.7) k/uL Lymphocytes # 1.5 (1.0-4.8) k/uL Monocytes # 0.7 (0-1.0) k/uL Eosinophils # 1.0 H (0-0.7) k/uL Basophils # 0.1 (0-0.2) k/uL Hypochromasia Marked Anisocytosis Slight PT (9.0-12.0) sec INR (<1.2) APTT (22.0-30.0) sec Sodium 141 (137-145) mmol/L Potassium 3.7 (3.5-5.1) mmol/L Chloride 101 (98-107) mmol/L Carbon Dioxide 28 (22-30) mmol/L Anion Gap 12 mmol/L BUN 12 (9-20) mg/dL Creatinine 0.60 L (0.66-1.25) mg/dL Est GFR (MDRD) Af Amer >60 (>60 ml/min/1.73 sqM) Est GFR (MDRD) Non-Af >60 (>60 ml/min/1.73 sqM) Glucose 95 (74-99) mg/dL Plasma Lactic Acid Hernan 1.0 (0.7-2.0) mmol/L Calcium 9.1 (8.4-10.2) mg/dL Total Bilirubin 0.4 (0.2-1.3) mg/dL AST 53 (17-59) U/L ALT 58 (21-72) U/L Alkaline Phosphatase 159 H (38-126) U/L Total Protein 6.4 (6.3-8.2) g/dL Albumin 3.3 L (3.5-5.0) g/dL 10/26/16 Range/Units 11:45 WBC (3.8-10.6) k/uL RBC (4.30-5.90) m/uL Hgb (13.0-17.5) gm/dL Hct (39.0-53.0) % MCV (80.0-100.0) fL MCH (25.0-35.0) pg MCHC (31.0-37.0) g/dL RDW (11.5-15.5) % Plt Count (150-450) k/uL Neutrophils % % Lymphocytes % % Monocytes % % Eosinophils % % Basophils % % Neutrophils # (1.3-7.7) k/uL Lymphocytes # (1.0-4.8) k/uL Monocytes # (0-1.0) k/uL Eosinophils # (0-0.7) k/uL Basophils # (0-0.2) k/uL Hypochromasia Anisocytosis PT 20.5 H (9.0-12.0) sec INR 2.1 H (<1.2) APTT 36.5 H (22.0-30.0) sec Sodium (137-145) mmol/L Potassium (3.5-5.1) mmol/L Chloride (98-107) mmol/L Carbon Dioxide (22-30) mmol/L Anion Gap mmol/L BUN (9-20) mg/dL Creatinine (0.66-1.25) mg/dL Est GFR (MDRD) Af Amer (>60 ml/min/1.73 sqM) Est GFR (MDRD) Non-Af (>60 ml/min/1.73 sqM) Glucose (74-99) mg/dL Plasma Lactic Acid Hernan (0.7-2.0) mmol/L Calcium (8.4-10.2) mg/dL Total Bilirubin (0.2-1.3) mg/dL AST (17-59) U/L ALT (21-72) U/L Alkaline Phosphatase (38-126) U/L Total Protein (6.3-8.2) g/dL Albumin (3.5-5.0) g/dL Critical Care Time Critical Care Time: Yes Total Critical Care Time: 33 Disposition Clinical Impression: Cellulitis of knee, right, Sepsis Disposition: ADMITTED IP TO THIS HOSP Referrals: Eugenio Murillo DO [Primary Care Provider] - 1-2 days Decision Time: 12:28
[2016-10-26] MEDS: SODIUM CHLORIDE 0.9% 500 ML IV SCH ×2 (11:46→12:00)
[2016-10-26] MEDS ORDERED: PIPERACILLIN-TAZOBACTAM 3.375 GM in DEXTROSE/WATER 1 50ML.BAG IVPB STA (11:50)
[2016-10-26 11:59] LABS: Anisocytosis Slight; Basophils # (A) 0.1 k/uL (0-0.2); Basophils % (A) 0 %; CH 26.4; CHCM 30.1; Eosinophils % (A) 8 %; HCT 35.2 % (39.0-53.0); HDW 3.12; HGB 11.1 gm/dL (13.0-17.5); Hypochromasia Marked; Luc # (Auto) 0.28; Luc % (Auto) 2; Lymphocytes # (A) 1.5 k/uL (1.0-4.8); Lymphocytes % (A) 12 %; MCH 27.7 pg (25.0-35.0); MCHC 31.4 g/dL (31.0-37.0); MCV 88.1 fL (80.0-100.0); Mean Platelet Volume 7.6; Monocytes # (A) 0.7 k/uL (0-1.0); Monocytes % (A) 6 %; Neutrophils # (A) 8.6 k/uL (1.3-7.7); Neutrophils % (A) 71 %; RDW 19.4 % (11.5-15.5); WBC 12.2 k/uL (3.8-10.6); WBC (Perox) 12.75
[2016-10-26 12:08] LABS: INR 2.1 (<1.2); Partial Thromboplastin Time 36.5 sec (22.0-30.0); Prothrombin Time 20.5 sec (9.0-12.0)
[2016-10-26 12:17] LABS: ALT 58 U/L (21-72); AST 53 U/L (17-59); Alkaline Phosphatase 159 U/L (38-126); Anion Gap 12 mmol/L; Blood Urea Nitrogen 12 mg/dL (9-20); Calcium 9.1 mg/dL (8.4-10.2); Carbon Dioxide 28 mmol/L (22-30); Chloride 101 mmol/L (98-107); Glucose 95 mg/dL (74-99); Non-African American GFR(MDRD) >60 (>60 ml/min/1.73 sqM); Potassium 3.7 mmol/L (3.5-5.1); Sodium 141 mmol/L (137-145); Total Bilirubin 0.4 mg/dL (0.2-1.3); Total Protein 6.4 g/dL (6.3-8.2)
[2016-10-26] MEDS ORDERED: VANCOMYCIN 1,500 MG in SODIUM CHLORIDE 0.9% 250 ML IVPB STA (12:22)
[2016-10-26] MEDS ORDERED: SODIUM CHLORIDE 0.9% 500 ML IV STA (12:26)
[2016-10-26] MEDS ORDERED: SODIUM CHLORIDE 0.9% 1,000 ML IV STA (12:26)
[2016-10-26] MEDS ORDERED: IBUPROFEN 400 MG TAB PO PRN (12:29)
[2016-10-26] MEDS ORDERED: ACETAMINOPHEN TAB 325 MG TAB PO PRN (12:29)
[2016-10-26] MEDS ORDERED: NALOXONE 0.4 MG/ML 1 ML VIAL IV PRN (12:29)
--- NOTE | 2016-10-26 12:54 | XR ---
EXAMINATION TYPE: XR knee complete RT DATE OF EXAM: 10/26/2016 COMPARISON: NONE HISTORY: 61-year-old male with infection, pain, leg swelling. TECHNIQUE: 3 views FINDINGS: There is a vascular stent seen within the lower thigh. Diffuse soft tissue swelling is present. No ac [place] fracture, subluxation, or dislocation. Extensor mechanism appears intact. There is a trace joint effusion. However, there is severe prepatellar soft tissue thickening. IMPRESSION: 1. Generalized soft tissue swelling. However, severe prepatellar soft tissue thickening. This may rel ate to infection or prepatellar bursitis. 2. No acute osseous abnormality seen.
[2016-10-26 13:36] VITALS: BMI 29.0
--- NOTE | 2016-10-26 14:42 | P.CNOR ---
History of Present Illness - [facility] Consult date: 10/26/16 Requesting physician: Nilesh Rowan Consult reason: other (Cellulitis of the right knee) History of present illness: Patient is a very pleasant 61-year-old male with significant medical history who is seen and examined at the bedside for further evaluation for cellulitis of the right knee. Patient states he previously underwent arthrectomy with stent and balloon angioplasty of the right lower extremity on 05/14/2016. Subsequently he underwent surgical intervention and had all toes of the right lower extremity removed in June 2016. He had been recovering without difficulty. He is known to have previously been diagnosed with acute myeloid leukemia in July 2013. He is currently in remission after chemotherapy and undergoing bone marrow transplant. This past 10/22/2016, he followed up with his hematology oncology Doctor at which time he was experiencing some redness and swelling of the right knee. He states that hospice care consultant started him on Keflex. He follow-up with his primary care provider Dr. Murillo on Thursday. He states Dr. Murillo told him to keep an eye on his knee and if symptoms are not improving by Thursday he should to present to the emergency department for further evaluation. As his symptoms continued to worsen, he presented to [facility] for further evaluation today. Upon examination in the emergency department, he was found to meet sepsis criteria. He is been admitted to Dr. Lloyd in medicine further evaluation and treatment. Patient is also known to have a medical history which includes heart catheterization with stent placement and atrial fibrillation. He is currently on Coumadin anticoagulation therapy. He states he has not taken this medication since yesterday. Labs currently show his INR is 2.1. We were consulted for further evaluation of the right knee. Patient denies any recent falls, etc. dense, or injuries. He states since last Thursday he has began to experience significant redness, warmth, and swelling over the right knee and lower extremity. The erythema extends from the right knee down towards the right foot. His right lower extremity is swollen from the knee distally. He states he has been scratching at the right lower extremity as well. A blister formed over the right anterior knee today. He notices some tightness and redness over the distal left qureshi as well that is significantly better as compared to the right. He was given Zosyn in the emergency department. Vancomycin 1500 mg IV has been ordered. Patient currently denies nausea, vomiting, fever, chills. Past Medical History Past Medical History: Atrial Fibrillation, Coronary Artery Disease (CAD), Cancer , Hyperlipidemia, Vascular Disorder Additional Past Medical History / Comment(s): ACUTE MYELOID LEUKEMIA DIAGNOSED JULY 2013. LAST CHEMO APPROX 2 YRS AGO., PVD, STATES RIGHT FOOT SWOLLEN WITH SORES ON GREAT TOE ,2ND AND 3RD TOE, RIGHT FOOT PAINFUL. , STATES SLIGHT SWELLING IN LEFT LOWER LEG., SEE CARDIOLOGY H & P. History of Any Multi-Drug Resistant Organisms: None Reported Past Surgical History: Heart Catheterization With Stent, Hernia Repair Additional Past Surgical History / Comment(s): COLONOSCOPY, STATES 2 HEART CATHS WITH STENTS, BONE MARROW BX'S, PICC insertion x 2. bone marrow transplant , AORTAGRAM, ARTHRECTOMY WITH STENT AND BALLOON ANGIOPLASTY RIGHT LEG (05/14/2016 ) Past Anesthesia/Blood Transfusion Reactions: No Reported Reaction Date of Last Stent Placement:: 1999 Smoking Status: Former smoker Past Alcohol Use History: None Reported Additional Past Alcohol Use History / Comment(s): Patient has history of smoking 1 pack per day for at least 35 years. He quit 2013 Past Drug Use History: Marijuana Additional Drug Use History / Comment(s): does not currently smoke marijuana. did in the past for chemotherapy side effects. - Past Family History Father Family Medical History: Coronary Artery Disease (CAD) Brother(s) Family Medical History: Coronary Artery Disease (CAD) Sister(s) Family Medical History: CVA/TIA Mother Family Medical History: Hypertension Additional Family Medical History / Comment(s): BLOOD TRANSFUSION REACTION Medications and Allergies Home Medications Medication Instructions Recorded Confirmed Type Warfarin [Coumadin] 5 mg PO TH 12/12/13 10/26/16 History Gabapentin [Neurontin] 800 mg PO TID 09/14/15 10/26/16 History Metoprolol Tartrate [Lopressor] 12.5 mg PO BID 09/14/15 10/26/16 History Warfarin [Coumadin] 2.5 mg PO SUMOTUWEFRSA 10/17/15 10/26/16 History oxyCODONE HCL 10 mg PO Q4H PRN 05/12/16 10/26/16 History Clopidogrel [Plavix] 75 mg PO DAILY 06/10/16 10/26/16 History Atorvastatin [Lipitor] 80 mg PO HS 10/03/16 10/26/16 History Aspirin EC [Ecotrin Low Dose] 81 mg PO DAILY 10/26/16 10/26/16 History Cephalexin [Keflex] 500 mg PO QID 10/26/16 10/26/16 History Allergies Allergy/AdvReac Type Severity Reaction Status Date / Time No Known Allergies Allergy Verified 10/26/16 11:17 Physical Examination Physical Exam: Patient is awake, alert, and oriented 3 Vital signs stable Good chest excursion with deep inspiration and expiration Abdomen soft nontender No signs or symptoms of DVT; no calf pain Significant erythema, warmth, and swelling over the right knee extending distally towards the foot Tissue appears soft with palpation over the right patella which may be represent a pocket of fluid Most of the right knee extending down the right lower extremity feels firm and indurated with palpation most significant towards the right knee Evidence of a couple small blisters near the right patella Evidence of a well-healed incision over the distal right foot following removal of all toes of the right lower extremity Evidence of some skin flaking scabs over the right anterior qureshi Evidence of some small scabs over the left anterior qureshi Some evidence of erythema, mild swelling, and warmth with some induration over the left lower extremity below the knee Adequate range of motion of the bilateral lower extremities significant difficulty No significant pain with palpation over the right knee or bilateral lower extremities Results Pertinent studies: X-rays of the right knee: Generalized soft tissue swelling with severe prepatellar soft tissue thickening that may relate to infection or prepatellar bursitis - Labs Labs: Abnormal Lab Results - Last 24 Hours (Table) 10/26/16 10/26/16 10/26/16 Range/Units 11:45 11:45 11:45 WBC 12.2 H (3.8-10.6) k/uL RBC 4.00 L (4.30-5.90) m/uL Hgb 11.1 L (13.0-17.5) gm/dL Hct 35.2 L (39.0-53.0) % RDW 19.4 H (11.5-15.5) % Neutrophils # 8.6 H (1.3-7.7) k/uL Eosinophils # 1.0 H (0-0.7) k/uL PT 20.5 H (9.0-12.0) sec INR 2.1 H (<1.2) APTT 36.5 H (22.0-30.0) sec Creatinine 0.60 L (0.66-1.25) mg/dL Alkaline Phosphatase 159 H (38-126) U/L Albumin 3.3 L (3.5-5.0) g/dL H & H 10/26/16 Range/Units 11:45 Hgb 11.1 L (13.0-17.5) gm/dL Hct 35.2 L (39.0-53.0) % Coagulation 10/26/16 Range/Units 11:45 INR 2.1 H (<1.2) Result Diagrams: 10/26/16 11:45 10/26/16 11:45 Assessment and Plan (1) Cellulitis of knee, right Status: Acute (2) Sepsis Status: Acute Plan: Assessment: Cellulitis of the right knee and right lower extremity Right lower extremity pain Leukocytosis meeting sepsis criteria History of recent arthrectomy with stent and balloon angioplasty of the right lower extremity on 05/14/2016 History of recent surgical removal of all toes of the right foot in June 2016 History of acute myeloid leukemia currently in remission History of heart catheterization with stent placement and atrial fibrillation currently on Coumadin anticoagulation therapy Plan: 1. Further examination of the patient, discussion with the patient, reviewing of emergency notes, and reviewing of x-rays the right knee, we will currently pain with conservative treatment in regards to the patient's cellulitis of the right knee. He is currently scheduled to receive Vancomycin 1500 mg IV every 8 hours. He does have significant swelling, erythema, warmth of the right lower extremity. He does have a smaller soft pocket of tissue over the right patella. Most of the right lower extremity is somewhat firm and indurated with palpation. Patient will be discussed in detail with Dr. Vinay Pal. We will discuss the possibility of incision and drainage of the right knee. Patient will be seen and examined again in the morning for further evaluation to see if he is receiving benefit from vancomycin IV and/or to determine if surgical intervention could help provide some relief of his symptoms and provide benefit to the right knee. We'll continue to follow patient closely. Depending on his progress, we may plan for incision and drainage of the right knee is early as tomorrow afternoon, 10/27/2016. 2. Dr. Lloyd in medicine will continue to follow the patient for sepsis and cellulitis 3. Patient will be discussed in detail with Dr. Vinay Pal and we'll adjust our plan of care accordingly. Time with Patient: Greater than 30
[2016-10-26] MEDS ORDERED: VANCOMYCIN 1,500 MG in SODIUM CHLORIDE 0.9% 250 ML IVPB ONE (16:00)
--- NOTE | 2016-10-26 16:34 | XR ---
EXAMINATION TYPE: XR chest 1V portable DATE OF EXAM: 10/26/2016 Comparison: 09/14/2015 Clinical History: 61-year-old male Pre-Surgical Clearance Findings: The heart remains mildly enlarged. Diffuse interstitial prominence appears chronic and unchanged. No consolidation or pleural effusion. Impression: Cardiomegaly and chronic changes. No acute process seen.
[2016-10-26] MEDS ORDERED: PHYTONADIONE 2.5 MG in SODIUM CHLORIDE 0.9% 50 ML IVPB STA (17:49)
[2016-10-26] MEDS ORDERED: PIPERACILLIN-TAZOBACTAM 3.375 GM in DEXTROSE/WATER 1 50ML.BAG IVPB SCH (18:00)
[2016-10-26 18:48] LABS: Appearance,Urine Clear (Clear); Bacteria,Urine Rare /hpf; Bilirubin,Urine Negative (Negative); Glucose,Urine (UA) Negative (Negative); Ketones,Urine Negative (Negative); Leukocyte Esterase,Urine Negative (Negative); Mucus,Urine Rare /hpf; Nitrite,Urine Negative (Negative); Particle Count 1015; Protein,Urine Negative (Negative); RBC,Urine 8 /hpf (0-5); Specific Gravity,Urine 1.015 (1.001-1.035); UA Billing (MACRO vs. MICRO) MICRO; Urobilinogen,Urine <2.0 mg/dL (<2.0); WBC,Urine 1 /hpf (0-5)
[2016-10-26] MEDS: MORPHINE SULFATE 4 MG/ML SYRINGE IV PRN (18:55)
[2016-10-26] MEDS: SODIUM CHLORIDE 0.9% 1,000 ML IV SCH ×2 (19:50→19:56)
[2016-10-26] MEDS: PIPERACILLIN-TAZOBACTAM 3.375 GM in DEXTROSE/WATER 1 50ML.BAG IVPB SCH (20:45)
[2016-10-26] MEDS: METOPROLOL TARTRATE 12.5 MG TAB PO SCH (20:46)
[2016-10-26] MEDS: GABAPENTIN 400 MG CAP PO SCH (20:46)
[2016-10-26] MEDS: ATORVASTATIN 80 MG TAB PO SCH (20:47)
[2016-10-27] MEDS: VANCOMYCIN 1,500 MG in SODIUM CHLORIDE 0.9% 250 ML IVPB SCH ×3 (00:14→18:44)
[2016-10-27] MEDS: PIPERACILLIN-TAZOBACTAM 3.375 GM in DEXTROSE/WATER 1 50ML.BAG IVPB SCH ×3 (03:25→21:47)
[2016-10-27] MEDS: MORPHINE SULFATE 4 MG/ML SYRINGE IV PRN ×4 (03:33→20:32)
[2016-10-27 06:54] LABS: Anisocytosis Slight; Basophils # (A) 0.1 k/uL (0-0.2); Basophils % (A) 1 %; CH 26.3; CHCM 29.7; Eosinophils # (A) 0.9 k/uL (0-0.7); Eosinophils % (A) 10 %; HCT 33.7 % (39.0-53.0); HDW 3.09; HGB 10.1 gm/dL (13.0-17.5); Hypochromasia Marked; Luc # (Auto) 0.18; Luc % (Auto) 2; Lymphocytes # (A) 1.2 k/uL (1.0-4.8); Lymphocytes % (A) 12 %; MCH 26.6 pg (25.0-35.0); MCV 88.8 fL (80.0-100.0); Mean Platelet Volume 7.4; Monocytes # (A) 0.6 k/uL (0-1.0); Monocytes % (A) 6 %; Neutrophils # (A) 6.8 k/uL (1.3-7.7); Neutrophils % (A) 70 %; RBC 3.79 m/uL (4.30-5.90); RDW 19.6 % (11.5-15.5); WBC 9.7 k/uL (3.8-10.6)
[2016-10-27 07:09] LABS: ALT 49 U/L (21-72); AST 32 U/L (17-59); Alkaline Phosphatase 113 U/L (38-126); Anion Gap 8 mmol/L; Blood Urea Nitrogen 7 mg/dL (9-20); Calcium 8.8 mg/dL (8.4-10.2); Carbon Dioxide 29 mmol/L (22-30); Chloride 105 mmol/L (98-107); Glucose 83 mg/dL (74-99); Non-African American GFR(MDRD) >60 (>60 ml/min/1.73 sqM); Sodium 142 mmol/L (137-145); Total Bilirubin 0.7 mg/dL (0.2-1.3); Total Protein 5.6 g/dL (6.3-8.2)
[2016-10-27 07:16] LABS: INR 1.4 (<1.2)
[2016-10-27 07:17] LABS: Prothrombin Time 13.7 sec (9.0-12.0)
[2016-10-27] MEDS: METOPROLOL TARTRATE 12.5 MG TAB PO SCH ×2 (08:18→20:34)
--- NOTE | 2016-10-27 09:07 | P.PN ---
Progress Note - Text Patient is examined this morning for follow-up evaluation for cellulitis of the right knee after consultation yesterday. He is currently scheduled to undergo an incision and drainage of the right knee as afternoon. He is a very pleasant 61-year-old male with significant medical history. Since being seen exam yesterday, patient has not had significant improvement of his symptoms didn't have remained consistent. He continues to receive vancomycin and Zosyn IV. Patient was seen and examined yesterday by Dr. Lloyd in medicine. Per nursing , Dr. Lloyd has cleared the patient for surgery today. Today his INR is currently 1.4. He continues to have significant redness, warmth, swelling, and pain over the right knee and lower extremity. He continues to denies nausea, vomiting, fever, or chills. Patient states he is ready for surgical intervention. Pt History: Patient states he previously underwent arthrectomy with stent and balloon angioplasty of the right lower extremity on 05/14/2016. Subsequently he underwent surgical intervention and had all toes of the right lower extremity removed in June 2016. He had been recovering without difficulty. He is known to have previously been diagnosed with acute myeloid leukemia in July 2013. He is currently in remission after chemotherapy and undergoing bone marrow transplant. This past 10/22/2016, he followed up with his hematology oncology Doctor at which time he was experiencing some redness and swelling of the right knee. He states that respiratory care specialist started him on Keflex. He follow-up with his primary care provider Dr. Murillo on Thursday. He states Dr. Murillo told him to keep an eye on his knee and if symptoms are not improving by Thursday he should to present to the emergency department for further evaluation. As his symptoms continued to worsen, he presented to [facility] for further evaluation today. Upon examination in the emergency department, he was found to meet sepsis criteria. He is been admitted to Dr. Lloyd in medicine further evaluation and treatment. Patient is also known to have a medical history which includes heart catheterization with stent placement and atrial fibrillation. He is currently on Coumadin anticoagulation therapy. Patient denies any recent falls, etc. dense, or injuries. He states since last Thursday he has began to experience significant redness, warmth, and swelling over the right knee and lower extremity. The erythema extends from the right knee down towards the right foot. His right lower extremity is swollen from the knee distally. He states he has been scratching at the right lower extremity as well. A blister formed over the right anterior knee yesterday. He notices some tightness and redness over the distal left qureshi as well that is significantly better as compared to the right. He was given Zosyn in the emergency department. Vancomycin 1500 mg IV has been ordered. Patient currently denies nausea, vomiting, fever, chills. Physical Exam: Patient is awake, alert, and oriented 3 Vital signs stable Good chest excursion with deep inspiration and expiration Abdomen soft nontender No signs or symptoms of DVT; no calf pain Significant erythema, warmth, and swelling over the right knee extending distally towards the foot; swelling looks greater over the right anterior knee at the patella today Tissue appears soft with palpation over the right patella which may be represent a pocket of fluid Most of the right knee extending down the right lower extremity feels firm and indurated with palpation most significant towards the right knee Evidence of a couple small blisters near the right patella that has increased to about 4 today Evidence of a well-healed incision over the distal right foot following removal of all toes of the right lower extremity Evidence of some skin flaking scabs over the right anterior qureshi Evidence of some small scabs over the left anterior qureshi Some evidence of erythema, mild swelling, and warmth with some induration over the left lower extremity below the knee Adequate range of motion of the bilateral lower extremities significant difficulty No significant pain with palpation over the right knee or bilateral lower extremities Pertinent studies: X-rays of the right knee: Generalized soft tissue swelling with severe prepatellar soft tissue thickening that may relate to infection or prepatellar bursitis Assessment: Cellulitis of the right knee and right lower extremity Right lower extremity pain Leukocytosis meeting sepsis criteria History of recent arthrectomy with stent and balloon angioplasty of the right lower extremity on 05/14/2016 History of recent surgical removal of all toes of the right foot in June 2016 History of acute myeloid leukemia currently in remission History of heart catheterization with stent placement and atrial fibrillation currently on Coumadin anticoagulation therapy Plan: 1. After further examination of the patient, discussion with the patient, reviewing of emergency notes, reviewing of x-rays the right knee, and further discussion with Dr. Vinay Pal, we are currently planning for surgical intervention of the patient's right knee this afternoon. An incision and drainage of the right knee has been scheduled. We're planning to proceed forward with surgical intervention at approximately 1:00 PM. Patient has been cleared by medicine. Patient is currently nothing by mouth status. Patient states he is ready to proceed forward with surgical intervention. We'll continue with vancomycin 1500 mg IV and Zosyn as prescribed. Continue to follow patient closely 2. Dr. Lloyd in medicine will continue to follow the patient for sepsis and cellulitis 3. Patient has been discussed in detail with Dr. Vinay Pal and he agrees with this plan
[2016-10-27] MEDS: SODIUM CHLORIDE 0.9% 1,000 ML IV SCH ×2 (10:22→20:34)
[2016-10-27] MEDS: GABAPENTIN 400 MG CAP PO SCH ×3 (10:22→20:35)
--- NOTE | 2016-10-27 10:36 | HP ---
DATE OF ADMISSION: 10/26/2016 PRESENTING COMPLAINT: Red right knee. HISTORY OF PRESENTING COMPLAINT: A very pleasant 61-year-old patient of Dr. 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 Also has got atrial fibrillation on Coumadin, coronary artery disease with a stent in 1998, hypertension, hyperlipidemia, peripheral arterial disease has had intervention done by Dr. Koenig and then went down to [facility] for further interventions. Patient also got toes amputated on the right leg for infection. Five days has been having increasing redness, pain around the right knee with chills, fever. Right leg is a bit swollen, rather infected appearing. Now admitted for the same. is at the bedside. REVIEW OF SYSTEMS: CONSTITUTIONAL: As above. HEENT: None. RESPIRATORY: None. CARDIOVASCULAR: None. GASTROINTESTINAL: None. GENITOURINARY: None. MUSCULOSKELETAL: Pain in the joints. DERMATOLOGICAL: As above. LYMPHATICS: None. PSYCHIATRY: None. NEUROLOGICAL: None. PAST MEDICAL HISTORY: Acute myeloid leukemia, atrial fibrillation, coronary artery disease with stent, hypertension, hyperlipidemia, peripheral artery disease. PAST SURGICAL HISTORY: Cardiac cath with stent, hernia repair, bone marrow biopsy and bone marrow transplant, aortogram with atherectomy with stent and balloon angioplasty of the right leg. SOCIAL HISTORY: The patient smoked a pack a day for about 35 years, stopped in 2013. Did marijuana in the past. . FAMILY HISTORY: Reviewed, noncontributory to presentation. HOME MEDICATIONS: 1. Oxycodone 10 mg q.4 p.r.n. 2. Coumadin 2.5 mg on Thursday, Thursday, Thursday, Thursday, Thursday, Thursday and 5 mg on . 3. Lopressor 12.5 mg b.i.d. 4. Neurontin 800 mg p.o. t.i.d. 5. Plavix 75 mg p.o. daily. 6. Keflex 500 mg p.o. q.i.d. 7. Lipitor 80 mg q.h.s. 8. Aspirin 81 mg p.o. daily. ALLERGIES: None. ON EXAMINATION: Temperature 98, pulse 85, respirations 20, blood pressure is 135/69, pules ox 99% on room air. GENERAL APPEARANCE: Average built, lying in bed. Tired appearing. EYES: Pupils equal. Conjunctivae normal. HENT: Oral cavity normal. NECK: JVD not raised. Mass not palpable. RESPIRATORY: Effort normal. LUNGS: Diminished breath sounds. CARDIOVASCULAR: First and second sounds normal. Some edema in the right leg. ABDOMEN: Soft, nontender. Liver and spleen not palpable. LYMPHATICS: No lymph node palpable in the neck or axillae. PSYCHIATRY: Alert and oriented x3. Mood and affect normal. EXTREMITIES: Patient has got redness on the right knee, tender, swollen and also with swelling of the right leg compared to the left. Patient's ( ) in the right leg have been removed. INVESTIGATIONS: White count 12.2, hemoglobin 11.1. INR 2.1. Potassium 3.7. ASSESSMENT: 1. Acute severe cellulitis of the right knee and also swelling of the right lower extremity in a patient who has got peripheral arterial disease. There may be concern of underlying infection in the tissues. 2. History of atrial fibrillation, chronically on Coumadin. 3. Coronary artery disease, prior history of stent back in 1998. 4. Essential hypertension. 5. Hyperlipidemia. 6. Peripheral arterial disease. 7. History of amputation of the right toes. 8. Coumadin monitoring. PLAN: Patient is medically stable to proceed for surgery. Did have a long talk with the patient and the . Orthopedics was consulted. Will also get a vascular opinion and a cardiology consultation and infectious disease. The patient is put on vancomycin and Zosyn. Coumadin has been held. Will give a small dose of vitamin K IV so that patient's INR is more acceptable in case needs more surgery. Care was discussed in detail. RITU
[2016-10-27] MEDS ORDERED: BACITRACIN 50,000 UNIT, POLYMYXIN B 500,000 UNIT in SODIUM CHLORIDE 0.9% IRRIGATIO 1,00... IRRIGATION ONE (12:00)
[2016-10-27] MEDS ORDERED: IV FLUID CONTINUATION 1,000 ML IV ONE (12:57)
--- NOTE | 2016-10-27 13:02 | ECHOF ---
Referral Reason:pre-operative MEASUREMENTS -------- HEIGHT: 170.2 cm WEIGHT: 83.9 kg BP: 169/69 RVIDd: 3.5 cm (< 3.3) IVSd: 1.2 cm (0.6 - 1.1) LVIDd: 4.7 cm (3.9 - 5.3) LVPWd: 1.2 cm (0.6 - 1.1) IVSs: 1.4 cm LVIDs: 3.2 cm LVPWs: 1.7 cm LA Diam: 4.1 cm (2.7 - 3.8) LAESV Index (A-L): 44.65 ml/m Ao Diam: 3.4 cm (2.0 - 3.7) AV Cusp: 1.9 cm (1.5 - 2.6) MV EXCURSION: 11.106 mm (> 18.000) MV EF SLOPE: 72 mm/s (70 - 150) EPSS: 1.0 cm RAP: 15.00 mmHg RVSP: 58.50 mmHg FINDINGS -------- Atrial fibrillation. This was a technically good study. The left ventricular size is normal. There is borderline concentric left ventricular hypertrophy. Overall left ventricular systolic function is mildly impaired with, an EF between 45 - 50 %. The right ventricle is mildly enlarged. LA is severely dilated >40 ml/m2 The right atrium is normal in size. Aortic valve is trileaflet and is mildly thickened. The mitral valve leaflets are mildly thickened. Mild mitral annular calcification present. Mild mitral regurgitation is present. Mild tricuspid regurgitation present. There is severe pulmonary hypertension. The right ventricular systolic pressure, as measured by Doppler, is 58.50mmHg. The pulmonic valve was not well visualized. The aortic root size is normal. The inferior vena cava is dilated with no significant inspiratory collapse which is consistent estimated right atrial pressure of >15 mmHg. There is no pericardial effusion. CONCLUSIONS -------- 1. Atrial fibrillation. 2. The mitral valve leaflets are mildly thickened. 3. Mild mitral annular calcification present. 4. Mild mitral regurgitation is present. 5. Mild tricuspid regurgitation present. 6. There is severe pulmonary hypertension. 7. The right ventricular systolic pressure, as measured by Doppler, is 58.50mmHg. 8. The pulmonic valve was not well visualized. 9. The aortic root size is normal. 10. The inferior vena cava is dilated with no significant inspiratory collapse which is consistent estimated right atrial pressure of >15 mmHg. 11. There is no pericardial effusion. 12. This was a technically good study. 13. The left ventricular size is normal. 14. There is borderline concentric left ventricular hypertrophy. 15. Overall left ventricular systolic function is mildly impaired with, an EF between 45 - 50 %. 16. The right ventricle is mildly enlarged. 17. LA is severely dilated >40 ml/m2 18. The right atrium is normal in size. 19. Aortic valve is trileaflet and is mildly thickened. A OPERATOR: Dara Melo RDCS
[2016-10-27] MEDS ORDERED: PROPOFOL 10 MG/ML 20 ML VIAL IV ONE (13:53)
[2016-10-27] MEDS ORDERED: MIDAZOLAM 2 MG/2 ML VIAL ONE (13:53)
[2016-10-27] MEDS ORDERED: fentaNYL (PF) 50 MCG/ML 2 ML AMP ONE (13:53)
--- NOTE | 2016-10-27 13:57 | P.CRDCN ---
History of Present Illness Consult date: 10/27/16 History of present illness: This is a very pleasant 61-year-old male who is being seen in consultation for preoperative clearance. Patient has right knee cellulitis which is going to require incision and drainage this afternoon. He has an extensive history of chronic atrial fibrillation on Coumadin and metoprolol for rate control, coronary artery disease with a stent in 1998, hypertension, hyperlipidemia, severe peripheral tear disease and multiple toe amputations. He presented to the ED with complaints of worsening right knee pain, swelling and redness. He has been on antibiotics as an outpatient for 5 days with little to no improvement. Upon examination he is seen resting in bed comfortably in no acute distress. He denies any episodes of chest pain, shortness of breath, dizziness, diaphoresis, nausea or vomiting. He states this far as he is concerned his cardiac issues have been stable for an extended period of time. Review of Systems REVIEW OF SYSTEMS: Patient denies any chest discomfort. No shortness of breath. No diaphoresis. He denies headache, dizziness, blurred vision, double vision. No dyspnea on exertion. Patient denies any stomach discomfort. No nausea, vomiting. No hematochezia. No hematemesis. Denies any black stools or blood in his stools. No syncope. No palpitations. No cough. No recent fever or chills. Denies dysuria or hematuria. No muscle weakness or numbness. Past Medical History Past Medical History: Atrial Fibrillation, Coronary Artery Disease (CAD), Cancer , Hyperlipidemia, Vascular Disorder Additional Past Medical History / Comment(s): ACUTE MYELOID LEUKEMIA DIAGNOSED JULY 2013. LAST CHEMO APPROX 2 YRS AGO., PVD, STATES RIGHT FOOT SWOLLEN WITH SORES ON GREAT TOE ,2ND AND 3RD TOE, RIGHT FOOT PAINFUL. , STATES SLIGHT SWELLING IN LEFT LOWER LEG., SEE CARDIOLOGY H & P. History of Any Multi-Drug Resistant Organisms: None Reported Past Surgical History: Heart Catheterization With Stent, Hernia Repair Additional Past Surgical History / Comment(s): COLONOSCOPY, STATES 2 HEART CATHS WITH STENTS, BONE MARROW BX'S, PICC insertion x 2. bone marrow transplant , AORTAGRAM, ARTHRECTOMY WITH STENT AND BALLOON ANGIOPLASTY RIGHT LEG (05/14/2016 ) Past Anesthesia/Blood Transfusion Reactions: No Reported Reaction Date of Last Stent Placement:: 1999 Smoking Status: Former smoker Past Alcohol Use History: None Reported Additional Past Alcohol Use History / Comment(s): Patient has history of smoking 1 pack per day for at least 35 years. He quit 2013 Past Drug Use History: Marijuana Additional Drug Use History / Comment(s): does not currently smoke marijuana. did in the past for chemotherapy side effects. - Past Family History Father Family Medical History: Coronary Artery Disease (CAD) Brother(s) Family Medical History: Coronary Artery Disease (CAD) Sister(s) Family Medical History: CVA/TIA Mother Family Medical History: Hypertension Additional Family Medical History / Comment(s): BLOOD TRANSFUSION REACTION Medications and Allergies Home Medications Medication Instructions Recorded Confirmed Type Warfarin [Coumadin] 5 mg PO TH 12/12/13 10/26/16 History Gabapentin [Neurontin] 800 mg PO TID 09/14/15 10/26/16 History Metoprolol Tartrate [Lopressor] 12.5 mg PO BID 09/14/15 10/26/16 History Warfarin [Coumadin] 2.5 mg PO SUMOTUWEFRSA 10/17/15 10/26/16 History oxyCODONE HCL 10 mg PO Q4H PRN 05/12/16 10/26/16 History Clopidogrel [Plavix] 75 mg PO DAILY 06/10/16 10/26/16 History Atorvastatin [Lipitor] 80 mg PO HS 10/03/16 10/26/16 History Aspirin EC [Ecotrin Low Dose] 81 mg PO DAILY 10/26/16 10/26/16 History Cephalexin [Keflex] 500 mg PO QID 10/26/16 10/26/16 History Allergies Allergy/AdvReac Type Severity Reaction Status Date / Time No Known Allergies Allergy Verified 10/26/16 11:17 Physical Exam Vitals: Vital Signs Temp Pulse Resp BP Pulse Ox 10/27/16 13:01 97 F L 79 16 183/89 96 10/27/16 07:00 98 F 82 16 169/69 98 10/27/16 01:53 97.9 F 86 16 129/66 93 L 10/26/16 20:00 17 10/26/16 19:57 98.5 F 85 17 135/73 97 10/26/16 16:00 96 16 10/26/16 13:58 97.8 F 96 16 151/77 96 Intake and Output 10/26/16 10/27/16 10/27/16 22:59 06:59 14:59 Output Total 400 150 Balance -400 -150 Output: Urine 400 150 Other: Voiding Method Urinal # Voids 1 Weight 83.915 kg GENERAL: This is a 61-year-old male in no apparent distress at the time of my examination. HEENT: Head is atraumatic, normocephalic. Pupils are equal, round. Sclerae anicteric. Conjunctivae are clear. Mucous membranes of the mouth are moist. Neck is supple. There is no jugular venous distention. No carotid bruit is heard. LUNGS: Clear to auscultation and precussion. No chest wall tenderness is noted on palpation or with deep breathing. HEART: Irregular rate and rhythm without murmurs, rubs or gallops. S1 and S2 heard. ABDOMEN: Soft, nontender. Bowel sounds are heard. No organomegaly noted. EXTREMITIES: absent peripheral pulse right leg, faint to left. No evidence of peripheral edema and no calf tenderness noted. Significant redness swelling and pustular drainage to the right knee. NEUROLOGIC: Patient is awake, alert and oriented x3. Results 10/27/16 06:31 10/27/16 06:31 Cardiac Enzymes 10/27/16 Range/Units 06:31 AST 32 (17-59) U/L Coagulation 10/27/16 Range/Units 06:31 PT 13.7 H (9.0-12.0) sec CBC 10/27/16 Range/Units 06:31 WBC 9.7 (3.8-10.6) k/uL RBC 3.79 L (4.30-5.90) m/uL Hgb 10.1 L (13.0-17.5) gm/dL Hct 33.7 L (39.0-53.0) % Plt Count 329 (150-450) k/uL Comprehensive Metabolic Panel 10/27/16 Range/Units 06:31 Sodium 142 (137-145) mmol/L Potassium 4.0 (3.5-5.1) mmol/L Chloride 105 (98-107) mmol/L Carbon Dioxide 29 (22-30) mmol/L BUN 7 L (9-20) mg/dL Creatinine 0.69 (0.66-1.25) mg/dL Glucose 83 (74-99) mg/dL Calcium 8.8 (8.4-10.2) mg/dL AST 32 (17-59) U/L ALT 49 (21-72) U/L Alkaline Phosphatase 113 (38-126) U/L Total Protein 5.6 L (6.3-8.2) g/dL Albumin 2.8 L (3.5-5.0) g/dL Current Medications Generic Name Dose Route Start Last Admin Trade Name Freq PRN Reason Stop Dose Admin Acetaminophen 650 mg 10/26/16 12:29 Tylenol Tab PO Q6HR PRN Mild Pain or Fever > 100.5 Atorvastatin Calcium 80 mg 10/26/16 21:00 10/26/16 20:47 Lipitor PO 80 mg HS SHORTY Administration Gabapentin 800 mg 10/26/16 22:00 10/27/16 10:22 Neurontin PO Not Given TID SHORTY Sodium Chloride 1,000 mls @ 100 mls/hr 10/26/16 12:30 10/27/16 10:22 Saline 0.9% IV Not Given .Q10H SHORTY Piperacillin/Tazobactam/ 50 mls @ 12.5 mls/hr 10/26/16 20:00 10/27/16 12:41 Dextrose 3.375 gm/ IV Solution IVPB 12.5 mls/hr Q8H SHORTY Administration Vancomycin HCl 1,500 mg/ 250 mls @ 125 mls/hr 10/27/16 00:00 10/27/16 08:17 Sodium Chloride IVPB 125 mls/hr Q8H SHORTY Administration Ibuprofen 400 mg 10/26/16 12:29 Motrin PO Q6HR PRN Mild Pain or Fever > 100.5 Metoprolol Tartrate 12.5 mg 10/26/16 21:00 10/27/16 08:18 Lopressor PO 12.5 mg BID SHORTY Administration Miscellaneous Information 0 each 10/28/16 07:00 Vancomycin Trough Due MISCELLANE 10/28/16 07:01 DIRECTED ONE Morphine Sulfate 4 mg 10/26/16 12:29 10/27/16 12:41 Morphine Sulfate (Inj) IV 4 mg Q4HR PRN Administration Severe Pain Naloxone HCl 0.2 mg 10/26/16 12:29 Narcan IV Q2M PRN Opioid Reversal Oxycodone HCl 10 mg 10/26/16 17:45 10/27/16 00:17 Oxyir PO 10 mg Q4H PRN Administration Pain Intake and Output 10/26/16 10/27/16 10/27/16 22:59 06:59 14:59 Output Total 400 150 Balance -400 -150 Output: Urine 400 150 Other: Voiding Method Urinal # Voids 1 Weight 83.915 kg 10/27/16 06:31 10/27/16 06:31 - Imaging and Cardiology Echo: report reviewed (Infection fraction 45-50%, mildly enlarged right ventricle.) - EKG Interpretation EKG: no acute changes EKG shows: atrial fibrillation Assessment and Plan Plan: ASSESSMENT 1. Chronic atrial fibrillation, rate controlled on chronic anticoagulation with Coumadin. 2. Severe peripheral arterial disease. 3. Systolic heart failure, ejection fraction 45-50% compared to previous from May 2015. 4. Essential hypertension. 5. History of coronary artery disease with a stent in 1998. PLAN To his patient's history of chronic atrial fibrillation Coumadin should be resumed as soon as possible postoperatively according to orthopedics recommendations. Patient has a significant drop in his ejection fraction, 45-50 %. Due to his multiple comorbid conditions patient is a moderate risk for surgery. Nurse Practitioner note has been reviewed, I agree with a documented findings and plan of care. Patient was seen and examined.
[2016-10-27] MEDS ORDERED: LACTATED RINGERS 1,000 ML IV ONE (14:20)
[2016-10-27] MEDS ORDERED: HYDROmorphone 1 MG/ML 1 ML SYRINGE IVP ONE ×3 (15:00→15:50)
[2016-10-27] MEDS ORDERED: MEPERIDINE 50 MG/ML SYRINGE IVP ONE ×2 (15:20→15:37)
[2016-10-27] MEDS ORDERED: METOPROLOL TARTRATE 5 MG/5 ML VIAL IVP ONE (15:36)
[2016-10-27] MEDS ORDERED: MIDAZOLAM 2 MG/2 ML VIAL IVP ONE (15:59)
[2016-10-27] MEDS ORDERED: HYDROcodone/APAP 5-325MG 1 EACH TAB PO PRN (18:00)
[2016-10-27] MEDS ORDERED: NALOXONE 0.4 MG/ML 1 ML VIAL IV PRN (18:00)
[2016-10-27] MEDS ORDERED: traMADol 50 MG TAB PO PRN (18:00)
--- NOTE | 2016-10-27 18:13 | P.OP ---
Date of Procedure: 10/27/16 Preoperative Diagnosis: Right knee septic prepatellar bursitis Postoperative Diagnosis: Same Procedure(s) Performed: Implants: Anesthesia: GETA Pathology: other (Deep wound culture from right prepatellar bursa 2 cm ALLERGY) Condition: stable Disposition: PACU Indications for Procedure: Operative Findings: Description of Procedure: Preoperative diagnosis: Right knee prepatellar septic bursitis Postoperative diagnosis: Same Procedure: right knee prepatellar bursa irrigation and excisional debridement with excision of prepatellar bursa Surgeon: Dr. Kae Dast.: NIKUNJ Yee who is present at the entire the case persistence during positioning dissection exposure visualization irrigation and excisional debridement and closure Anesthesia: Gen. per Dr. Darby Specimen: Deep wound culture 2 sent to microbiology Complications: None apparent Disposition: To recovery room in good stable condition Operative indications Patient is a pleasant 61-year-old gentleman who has history of vascular pathology. We are counseled in the case in regards to right lower extremity cellulitis. After evaluation of the patient it was felt that he had a abscess and prepatellar septic bursitis at his right knee. It did not seem to involve the joint itself. He had been tried on oral antibiotics as an outpatient but this was not giving him any relief. He was admitted to the hospital yesterday in regards to his worsening infectious issues. We saw the patient and he was on antibiotics overnight but was not having any significant improvement. It was felt that he had close contents of purulence under pressure at his prepatellar bursa on his right knee and I felt that the best treatment for him would be to pursue open irrigation and incisional debridement with excisional debridement of his prepatellar bursa. We discussed the nature of his issues with his infection and the purulence at. We discussed the possible risks of his issues and the possible risks of various treatments. The risks of his prepatellar septic bursitis including bacteremia further infection and further issues with his lower extremities were explained to him. Be especially discussed the risk in regards to his history of vascular issues for with and he does have a higher forefoot amputation in the past on the same side. I discussed the risk of treatment ranging from conservative to surgical. Risks of surgery including but limited to the risk of bleeding risk of infection risk and need for further surgery risk of decreased loss of motion loss of function recurrent infection loss of limb was all explained to him all his cautions were answered to best of our ability healing she can understand and elected proceed with surgical intervention and signed informed consent. Operative summary After obtaining informed consent evaluation by anesthesia preoperative medical evaluation and clearance patient was identified and prepped holding area and the surgical site was marked. He has been receiving IV antibiotics on the floor and receive them preoperatively. The patient was brought to the operating room where he was transferred the operating table being careful to pad any bony prominences and pressure points in a supine position. He was sedated and intubated by anesthesia in standard sterile fashion without A, occasions keeping his head and neck and cervical spine and good neutral alignment and position. Once his airway and C-spine were secured his right lower extremity was prepped and draped in normal standard fashion. An appropriate keystone protocol appropriate timeout were completed where oblique proceed with the surgery. A midline incision was placed over his right knee. There was an obvious fluctuant area approximately 6 x 6 cm over his anterior patella. Upon the incision there was an large gush of purulent foul pus that erupted from the prepatellar bursa. There is approximately 200 mL of purulent fluid that was removed from the prepatellar bursa. It was yellowish green and opaque and obvious pus. There is some dermal lysis superficially which was removed from around the incision. Incision approximately 4 cm in length. I was able to explore the area and digitally palpated. There is no evidence of any medication into the joint. The wound was irrigated and suctioned dry. I was able to flex and extend the knee and there is no further fluid coming out and I do not believe there was any communication with the joint itself. The talar bursa was obviously denuded and infected and I was able to excise and remove portions of the prepatellar bursa sharply and with curettes. All of the excised material was removed was discarded. The wound was then copiously irrigated and suctioned dry with approximately 3 L antibiotic impregnated solution. It had good bleeding margins and appear to be clean. The space was evacuated was then packed with half inch iodoform gauze. The skin was then closed loosely with nylon being careful not to sew in the form gauze. We were able to complete the closure. The wound was then covered with Adaptic for a force ABDs and a gentle compression dressing with Johnnie wrap. The drapes were broken down the patient was woken up by anesthesia extubated transferred back to his hospital bed and brought to recovery room in good stable condition where he'll be readmitted for pain control antibiotics management and close follow-up and observation. He may weight-bear as tolerated on his right lower extremity and we will continue the packing until tomorrow we will change the dressing and remove the packing itself. We will continue to follow him closely.
--- NOTE | 2016-10-27 19:09 | P.PN ---
<Teri Velazquez - Last Filed: 10/27/16 19:01> Progress Note - Text DATE OF SERVICE: 10/27/2016 PRESENTING COMPLAINT: Right knee redness and swelling INTERVAL HISTORY: 61-year-old patient who for the past 5 days said increasing redness and pain from the right knee with chills and fever. Right knee/leg is swollen rather infected looking and was admitted for the same. 10/27/2016: Patient resting quietly in bed, waiting to go for procedure this morning. Patient remains nothing by mouth. REVIEW OF SYSTEMS: Done for constitutional ,cardiovascular, GI, pulmonary with relevant findings as above. CURRENT MEDICATIONS [place], Lipitor, Neurontin, Lopressor, Zosyn, vancomycin, Ultram. PHYSICAL EXAM VITAL SIGNS: Temperature 98.0, pulse 82, respiratory rate 16, blood pressure 169/69, oxygen saturation 98% on room air. GENERAL APPEARANCE: Lying in bed, not in distress. EYES: Pupils equal. Conjunctiva normal. NECK: JVD not raised. Mass not palpable. RESPIRATORY: Respiratory effort normal. Lungs clear to auscultation. CARDIOVASCULAR: First and second sounds normal. No edema. ABDOMEN: Soft. Liver and spleen not palpable. No tenderness. No mass palpable. PSYCHIATRY: Alert and oriented x3. Mood and affect normal. EXTREMITIES: Right knee red swollen tender, distal swelling to the leg, patient' s toes on the right leg up and removed. INVESTIGATIONS: White blood cell count 9.7, hemoglobin 10.1, INR 1.4, sodium 142, potassium 4.0 , BUN 7, creatinine 0.69. ASSESSMENT: -Acute severe cellulitis of the right knee with swelling of the right lower extremity in a patient who has got peripheral arterial disease. Concern of underlying infection in the tissues. -History of atrial fibrillation, chronically on Coumadin. -Coronary artery disease, prior history of stent back in 1998. -Essential hypertension. -Hyperlipidemia. -Peripheral arterial disease. -History of taste of the right toes. -Coumadin monitoring. PLAN: Await patient surgical intervention, we'll continue current medication and treatment plan. We'll resume Coumadin per surgical team preference. We'll follow closely CRYSTAL GROWING TECHNICIAN statement: Patient was seen and examined by nurse practitioner Teri Velazquez and all elements of the case discussed with attending Dr. Lloyd <Nate Lloyd - Last Filed: 10/27/16 22:11> Progress Note - Text Attending note. Date of service-10/27/2016 This patient was seen and examined by me . I reviewed the note of my nurse practitioner, Ms. Velazquez. Discussed with her, additional findings as below. This patient underwent to the or. Large amount of pus was obtained from the prepatellar bursa. Dressing in place. Patient has pain at the operative site. On examination: Afebrile, blood pressure 163 with 84, lungs decreased breath sounds, right knee and dressing Investigations: White count 9.7, hemoglobin 10.1, INR 1.4 Assessment and plan: Abscess of the right prepatellar bursa status post I&D large amount of pus was obtained Await culture results. In the meantime continue the antibiotics. Patient's Coumadin will be resumed tonight. Home pain medications are to resume including oxycodone. Care was discussed with the patient
[2016-10-27] MEDS: ATORVASTATIN 80 MG TAB PO SCH (20:34)
--- NOTE | 2016-10-27 20:42 | P.CONS ---
History of Present Illness - Reason for Consult Consult date: 10/27/16 - Chief Complaint Right knee infection - History of Present Illness Pleasant 61-year-old male who is noted infectious disease service from his bout of pneumonia in 2016. Presents to the emergency center with a somewhat short history of increasing pain to his right knee. Discussed the point in time really a great difficulties with ambulation and constantly sought care. The patient has a very pertinent recent history regarding his right lower extremity. Distant history of severe peripheral vascular disease. He underwent interventions include arthrectomy balloon angioplasty to the right lower extremity. After blood flow was improved he was taken to the operating room for the transmetatarsal amputation. Other than some discomfort at the knee and the foot he has no other acute complaints at this time. He is denying high-grade fevers chills rigors or sweats. The patient did have distinct erythema about the knee. It was very painful. Great difficulty with ambulation. Other than some pruritus to the area no other acute changes noted before the onset. No history of trauma or injury to the knee. 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 Review of Systems HEENT:Denies headache or acute visual change. Denies sinus or mouth discomforts. Denies neck stiffness or pain. Denies significant oral cavity pain. Denies difficulty on swallowing. Lungs: Denies significant shortness of breath, cough, sputum production, or hemoptysis. Cardiovascular: Denies significant shortness of breath, his chest pain has improved. Gastrointestinal:Denies nausea, vomiting, diarrhea, constipation, hematemesis, melena, hematochezia. No no significant change of bowel habit noticed. Musculoskeletal: denies significant myalgias or arthralgias. No new joint swelling. Denies new back pain. Skin: Significant pain and swelling to the right knee Neuro: Denies headache or visual change. Denies any new onset weakness or difficulty with ambulation. Denies falls or seizures. Psychiatric:Denies anxiety or depression. Endocrine: Denies significant fatigue, denies significant weight loss or weight gain. Past Medical History Past Medical History: Atrial Fibrillation, Coronary Artery Disease (CAD), Cancer , Hyperlipidemia, Vascular Disorder Additional Past Medical History / Comment(s): ACUTE MYELOID LEUKEMIA DIAGNOSED JULY 2013. LAST CHEMO APPROX 2 YRS AGO., PVD, STATES RIGHT FOOT SWOLLEN WITH SORES ON GREAT TOE ,2ND AND 3RD TOE, RIGHT FOOT PAINFUL. , STATES SLIGHT SWELLING IN LEFT LOWER LEG., SEE CARDIOLOGY H & P. History of Any Multi-Drug Resistant Organisms: None Reported Past Surgical History: Heart Catheterization With Stent, Hernia Repair Additional Past Surgical History / Comment(s): COLONOSCOPY, STATES 2 HEART CATHS WITH STENTS, BONE MARROW BX'S, PICC insertion x 2. bone marrow transplant , AORTAGRAM, ARTHRECTOMY WITH STENT AND BALLOON ANGIOPLASTY RIGHT LEG (05/14/2016 ) Past Anesthesia/Blood Transfusion Reactions: No Reported Reaction Date of Last Stent Placement:: 1999 Additional Psychological History / Comment(s): Patient has history of smoking 1 pack per day for at least 35 years. He quit to [facility] in 2013 when he was diagnosed with AML. He denies having a medical marijuana card but does smoke. marijuana on occasional basis. He denies any alcohol abuse but does drink socially. Patient is retired electrical superintendent. He currently lives at home with his . There are no pets in the. home. He does travel frequently to [place] as his children and grandchildren live there. He denies any service. Smoking Status: Former smoker Past Alcohol Use History: None Reported Additional Past Alcohol Use History / Comment(s): Patient has history of smoking 1 pack per day for at least 35 years. He quit 2013 Past Drug Use History: Marijuana Additional Drug Use History / Comment(s): does not currently smoke marijuana. did in the past for chemotherapy side effects. - Past Family History Father Family Medical History: Coronary Artery Disease (CAD) Brother(s) Family Medical History: Coronary Artery Disease (CAD) Sister(s) Family Medical History: CVA/TIA Mother Family Medical History: Hypertension Additional Family Medical History / Comment(s): BLOOD TRANSFUSION REACTION Medications and Allergies Home Medications and Allergies Comment(s): Current Medications Acetaminophen (Tylenol Tab) 650 mg PO Q6HR PRN PRN Reason: Mild Pain or Fever > 100.5 Hydrocodone Bitart/Acetaminophen ([place] 5-325) 1 each PO Q6HR PRN PRN Reason: Pain Scale 1 to 5 Hydrocodone Bitart/Acetaminophen ([place] 5-325) 2 each PO Q6HR PRN PRN Reason: Pain Scale 6 to 10 Atorvastatin Calcium (Lipitor) 80 mg PO HS [facility] Last Admin: 10/27/16 20:34 Dose: 80 mg Gabapentin (Neurontin) 800 mg PO TID [facility] Last Admin: 10/27/16 20:35 Dose: 800 mg Sodium Chloride (Saline 0.9%) 1,000 mls @ 100 mls/hr IV .Q10H [facility] Last Admin: 10/27/16 20:34 Dose: 100 mls/hr Piperacillin/Tazobactam/ (Dextrose 3.375 gm/ IV Solution) 50 mls @ 12.5 mls/hr IVPB Q8H [facility] Last Admin: 10/27/16 12:41 Dose: 12.5 mls/hr Vancomycin HCl 1,500 mg/ (Sodium Chloride) 250 mls @ 125 mls/hr IVPB Q8H [facility] Ibuprofen (Motrin) 400 mg PO Q6HR PRN PRN Reason: Mild Pain or Fever > 100.5 Metoprolol Tartrate (Lopressor) 12.5 mg PO BID [facility] Last Admin: 10/27/16 20:34 Dose: 12.5 mg Miscellaneous Information (Vancomycin Trough Due) 0 each MISCELLANE DIRECTED ONE Stop: 10/28/16 09:01 Morphine Sulfate (Morphine Sulfate (Inj)) 4 mg IV Q4HR PRN PRN Reason: Severe Pain Last Admin: 10/27/16 20:32 Dose: 4 mg Naloxone HCl (Narcan) 0.2 mg IV Q2M PRN PRN Reason: Opioid Reversal Oxycodone HCl (Oxyir) 10 mg PO Q4H PRN PRN Reason: Pain Last Admin: 10/27/16 17:49 Dose: 10 mg Tramadol HCl (Ultram) 50 mg PO Q6H PRN PRN Reason: Mild to Moderate Pain Home Medications Medication Instructions Recorded Confirmed Type Warfarin [Coumadin] 5 mg PO TH 12/12/13 10/26/16 History Gabapentin [Neurontin] 800 mg PO TID 09/14/15 10/26/16 History Metoprolol Tartrate [Lopressor] 12.5 mg PO BID 09/14/15 10/26/16 History Warfarin [Coumadin] 2.5 mg PO [id number] 10/17/15 10/26/16 History oxyCODONE HCL 10 mg PO Q4H PRN 05/12/16 10/26/16 History Clopidogrel [Plavix] 75 mg PO DAILY 06/10/16 10/26/16 History Atorvastatin [Lipitor] 80 mg PO HS 10/03/16 10/26/16 History Aspirin EC [Ecotrin Low Dose] 81 mg PO DAILY 10/26/16 10/26/16 History Cephalexin [Keflex] 500 mg PO QID 10/26/16 10/26/16 History Allergies Allergy/AdvReac Type Severity Reaction Status Date / Time No Known Allergies Allergy Verified 10/26/16 11:17 Physical Exam Vitals: Vital Signs Temp Pulse Pulse Resp BP Pulse Ox 10/27/16 16:28 84 16 150/77 97 10/27/16 16:14 100 16 160/78 94 L 10/27/16 15:59 93 16 97 10/27/16 15:44 100 20 187/88 97 10/27/16 15:29 105 H 18 192/86 97 10/27/16 15:14 99 18 198/93 97 10/27/16 14:59 104 H 18 172/85 94 L 10/27/16 14:44 97.3 F L 104 H 20 195/96 100 10/27/16 13:01 97 F L 79 16 183/89 96 10/27/16 07:00 98 F 82 16 169/69 98 10/27/16 01:53 97.9 F 86 16 129/66 93 L Intake and Output 10/27/16 10/27/16 10/27/16 06:59 14:59 22:59 Intake Total 600 550 Output Total 250 250 Balance 350 300 Intake: IV 600 550 Output: Urine 150 250 Estimated Blood Loss 100 Other: # Voids 1 Pleasant 61-year-old male presents to Hospital with chest pain. Is also having a fever. Concerned because of his history of a bone marrow transplantation for his AML. HEENT: Anicteric conjunctiva are pink and moist nasal mucosa grossly intact without significant lesions, there is no thrush. Neck: The neck is supple without significant lymphadenopathy or thyromegaly. Lungs: Symmetric air entry is noted. There are expiratory wheezes but no mihai bronchial sounds. No dullness or egophony. Heart: Irregularly irregular with an audible S1 and S2, no S3 no S4. There is no significant murmur click or rub, PMI was nondisplaced. Abdomen: Positive bowel sounds soft and nontender without palpable masses or organomegaly. There was no guarding or rebound. Extremities: The upper extremities have excellent pulses they are symmetric, no significant petechiae or telangiectasia. No splinter hemorrhages were noted. The lower extremities reveal no acute abnormality the left leg. The right knee has extensive dressing in place from the bursectomy that was performed a few hours ago. His dressing is not removed. The dressing is intact. Neuro: Awake alert oriented to person place and time. There are no acute new gross focal sensory motor deficits. Results CBC & Chem 7: 10/27/16 06:31 10/27/16 06:31 Labs: Abnormal Lab Results - Last 24 Hours (Table) 10/27/16 10/27/16 10/27/16 Range/Units 06: 06: 06:31 RBC 3.79 L (4.30-5.90) m/uL Hgb 10.1 L (13.0-17.5) gm/dL Hct 33.7 L (39.0-53.0) % MCHC 30.0 L (31.0-37.0) g/dL RDW 19.6 H (11.5-15.5) % Eosinophils # 0.9 H (0-0.7) k/uL PT 13.7 H (9.0-12.0) sec INR 1.4 H (<1.2) BUN 7 L (9-20) mg/dL Total Protein 5.6 L (6.3-8.2) g/dL Albumin 2.8 L (3.5-5.0) g/dL Microbiology - Last 24 Hours (Table) 10/27/16 14:27 Anaerobic Culture - Preliminary Knee - Right 10/27/16 14:27 Anaerobic Culture - Preliminary Knee - Right 10/27/16 14:27 Wound Culture - Preliminary Knee - Right 10/27/16 14:27 Wound Culture - Preliminary Knee - Right 10/26/16 11:50 Blood Culture - Preliminary Blood No Growth after 24 hours 10/26/16 11:45 Blood Culture - Preliminary Blood No Growth after 24 hours Laboratory Results WBC 9.7 k/uL (3.8-10.6) 10/27/16 06:31 RBC 3.79 m/uL (4.30-5.90) L 10/27/16 06:31 Hgb 10.1 gm/dL (13.0-17.5) L 10/27/16 06:31 Hct 33.7 % (39.0-53.0) L 10/27/16 06:31 MCV 88.8 fL (80.0-100.0) 10/27/16 06:31 MCH 26.6 pg (25.0-35.0) 10/27/16 06:31 MCHC 30.0 g/dL (31.0-37.0) L 10/27/16 06:31 RDW 19.6 % (11.5-15.5) H 10/27/16 06:31 Plt Count 329 k/uL (150-450) 10/27/16 06:31 Neutrophils % 70 % 10/27/16 06:31 Lymphocytes % 12 % 10/27/16 06:31 Monocytes % 6 % 10/27/16 06:31 Eosinophils % 10 % 10/27/16 06:31 Basophils % 1 % 10/27/16 06:31 Neutrophils # 6.8 k/uL (1.3-7.7) 10/27/16 06:31 Lymphocytes # 1.2 k/uL (1.0-4.8) 10/27/16 06:31 Monocytes # 0.6 k/uL (0-1.0) 10/27/16 06:31 Eosinophils # 0.9 k/uL (0-0.7) H 10/27/16 06:31 Basophils # 0.1 k/uL (0-0.2) 10/27/16 06:31 Hypochromasia Marked 10/27/16 06:31 Anisocytosis Slight 10/27/16 06:31 PT 13.7 sec (9.0-12.0) H 10/27/16 06:31 INR 1.4 (<1.2) H 10/27/16 06:31 APTT 36.5 sec (22.0-30.0) H 10/26/16 11:45 Sodium 142 mmol/L (137-145) 10/27/16 06:31 Potassium 4.0 mmol/L (3.5-5.1) 10/27/16 06:31 Chloride 105 mmol/L (98-107) 10/27/16 06:31 Carbon Dioxide 29 mmol/L (22-30) 10/27/16 06:31 Anion Gap 8 mmol/L 10/27/16 06:31 BUN 7 mg/dL (9-20) L 10/27/16 06:31 Creatinine 0.69 mg/dL (0.66-1.25) 10/27/16 06:31 Est GFR (MDRD) Af Amer >60 (>60 ml/min/1.73 sqM) 10/27/16 06:31 Est GFR (MDRD) Non-Af >60 (>60 ml/min/1.73 sqM) 10/27/16 06:31 Glucose 83 mg/dL (74-99) 10/27/16 06:31 Plasma Lactic Acid [place] 1.0 mmol/L (0.7-2.0) 10/26/16 11:45 Calcium 8.8 mg/dL (8.4-10.2) 10/27/16 06:31 Total Bilirubin 0.7 mg/dL (0.2-1.3) 10/27/16 06:31 AST 32 U/L (17-59) 10/27/16 06:31 ALT 49 U/L (21-72) 10/27/16 06:31 Alkaline Phosphatase 113 U/L (38-126) 10/27/16 06:31 Total Protein 5.6 g/dL (6.3-8.2) L 10/27/16 06:31 Albumin 2.8 g/dL (3.5-5.0) L 10/27/16 06:31 Urine Color Yellow 10/26/16 18:35 Urine Appearance Clear (Clear) 10/26/16 18:35 Urine pH 6.0 (5.0-8.0) 10/26/16 18:35 Ur Specific [place] 1.015 (1.001-1.035) 10/26/16 18:35 Urine Protein Negative (Negative) 10/26/16 18:35 Urine Glucose (UA) Negative (Negative) 10/26/16 18:35 Urine Ketones Negative (Negative) 10/26/16 18:35 Urine Blood Trace (Negative) H 10/26/16 18:35 Urine Nitrite Negative (Negative) 10/26/16 18:35 Urine Bilirubin Negative (Negative) 10/26/16 18:35 Urine Urobilinogen <2.0 mg/dL (<2.0) 10/26/16 18:35 Ur Leukocyte Esterase Negative (Negative) 10/26/16 18:35 Urine RBC 8 /hpf (0-5) H 10/26/16 18:35 Urine WBC 1 /hpf (0-5) 10/26/16 18:35 Urine Bacteria Rare /hpf (None) H 10/26/16 18:35 Urine Mucus Rare /hpf (None) H 10/26/16 18:35 Microbiology 10/27/16 14:27 Knee - Right Anaerobic Culture - Preliminary 10/27/16 14:27 Knee - Right Anaerobic Culture - Preliminary 10/27/16 14:27 Knee - Right Wound Culture - Preliminary 10/27/16 14:27 Knee - Right Wound Culture - Preliminary 10/26/16 11:50 Blood Blood Culture - Preliminary No Growth after 24 hours 10/26/16 11:45 Blood Blood Culture - Preliminary No Growth after 24 hours Assessment and Plan (1) Infection of right prepatellar bursa Narrative/Plan: Pleasant 61-year-old male presents to Hospital is to be in severe pain to his right knee. Was on evidence of an extensive cellulitis and prepatellar bursa infection. He was taken to the operating room and incision and drainage has occurred. Deep cultures are in process. Currently being treated with Zosyn and vancomycin until further cultures are available. With his posttransplant status is at increased risk of infection. Seems to doing modestly well at this time post surgery. Last evaluation he had pneumonia and has no ongoing pulmonary symptoms at this time. Denies other significant skin lesions. Leukocytosis was noted and is starting to improve Status: Acute (2) Leukocytosis Status: Acute (3) AML (acute myeloid leukemia) in remission Status: Acute
[2016-10-27] MEDS: WARFARIN 2.5 MG TAB PO SCH (22:45)
--- NOTE | 2016-10-27 22:47 | CONS ---
This is a 61-year-old pleasant gentleman who has been admitted to Dr. Lloyd's service with a history of right knee marked swelling and redness. The patient had an x-ray of the knee which showed bursitis, and the patient will be seen by Orthopedics for I&D of the right knee and possible excision of the bursa. PAST HISTORY: Patient had a right SFA stent by Dr. Koenig in April of 2016 and then patient had a second operation done by Dr. Flores, right leg PTBA, and his third surgery was done by Dr. Andrzej Oquendo when patient had a transmetatarsal amputation of the toes. Patient also has a history of AML with bone transplant. On examination, neck is supple. Trachea is central. Chest is clear on auscultation. First and second sounds normal. Abdomen is soft. Femoral pulses are palpable. Patient has marked swelling of the right knee with redness and some tenderness. Patient has had transmetatarsal amputation of the right foot. PTTB not palpable. Patient is under the care of Orthopedics. Patient will proceed with surgery. At this point, patient does not need any vascular intervention. RITU
[2016-10-27] MEDS: HYDROcodone/APAP 5-325MG 1 EACH TAB PO PRN (23:47)
[2016-10-28] MEDS: VANCOMYCIN 1,500 MG in SODIUM CHLORIDE 0.9% 250 ML IVPB SCH ×2 (02:32→09:51)
[2016-10-28] MEDS: PIPERACILLIN-TAZOBACTAM 3.375 GM in DEXTROSE/WATER 1 50ML.BAG IVPB SCH ×3 (04:43→20:28)
[2016-10-28] MEDS: SODIUM CHLORIDE 0.9% 1,000 ML IV SCH ×2 (04:44→17:11)
[2016-10-28] MEDS: HYDROcodone/APAP 5-325MG 1 EACH TAB PO PRN ×2 (04:48→17:12)
[2016-10-28] MEDS: GABAPENTIN 400 MG CAP PO SCH ×3 (07:32→20:28)
[2016-10-28] MEDS: METOPROLOL TARTRATE 12.5 MG TAB PO SCH ×2 (07:32→20:28)
[2016-10-28] MEDS: CLOPIDOGREL 75 MG TAB PO SCH (07:32)
[2016-10-28] MEDS ORDERED: VANCOMYCIN TROUGH DUE 1 EACH MISC MISCELLANE ONE (09:00)
--- NOTE | 2016-10-28 09:10 | P.PN ---
Progress Note - Text Patient is examined this morning for follow-up evaluation following tatus post incision and drainage of the right knee with cultures taken, cellulitis of the right knee and right lower extremity, and right prepatellar bursitis infection. Patient states he does not feel significantly different following the incision and drainage. He continues to have some pain at the right knee and lower extremity. He has been seen and examined by Dr. Naylor in infectious disease. Cultures were taken during surgical intervention and the results are currently preliminary and pending. He continues to receive vancomycin and Zosyn IV. Patient continues to be seen and examined by Dr. Lloyd in medicine. He continues to have significant redness, warmth, swelling, and pain over the right knee and lower extremity. He continues to denies nausea, vomiting, fever, or chills. Pt History: Patient states he previously underwent arthrectomy with stent and balloon angioplasty of the right lower extremity on 05/14/2016. Subsequently he underwent surgical intervention and had all toes of the right lower extremity removed in June 2016. He had been recovering without difficulty. He is known to have previously been diagnosed with acute myeloid leukemia in July 2013. He is currently in remission after chemotherapy and undergoing bone marrow transplant. This past 10/22/2016, he followed up with his hematology oncology Doctor at which time he was experiencing some redness and swelling of the right knee. He states that patient care secretary started him on Keflex. He follow-up with his primary care provider Dr. Murillo on Thursday. He states Dr. Murillo told him to keep an eye on his knee and if symptoms are not improving by Thursday he should to present to the emergency department for further evaluation. As his symptoms continued to worsen, he presented to [facility] for further evaluation today. Upon examination in the emergency department, he was found to meet sepsis criteria. He is been admitted to Dr. Lloyd in medicine further evaluation and treatment. Patient is also known to have a medical history which includes heart catheterization with stent placement and atrial fibrillation. He is currently on Coumadin anticoagulation therapy. Patient denies any recent falls, etc. dense, or injuries. He states since last Thursday he has began to experience significant redness, warmth, and swelling over the right knee and lower extremity. The erythema extends from the right knee down towards the right foot. His right lower extremity is swollen from the knee distally. He states he has been scratching at the right lower extremity as well. A blister formed over the right anterior knee yesterday. He notices some tightness and redness over the distal left qureshi as well that is significantly better as compared to the right. He was given Zosyn in the emergency department. Vancomycin 1500 mg IV has been ordered. Patient currently denies nausea, vomiting, fever, chills. Physical Exam: Patient is awake, alert, and oriented 3 Vital signs stable Good chest excursion with deep inspiration and expiration Abdomen soft nontender No signs or symptoms of DVT; no calf pain Dressing over the right knee following surgical intervention is removed during physical examination; Adaptic, 4 x 4's, ABD pads, and Johnnie wrap reapplied following examination Significant erythema, warmth, and swelling over the right knee extending distally towards the foot; swelling has had significant improvement following incision and drainage of the right knee Evidence of a vertical incision over the anterior right knee with 4 sutures intact Evidence of iodoform gauze at the wound site; iodoform gauze removed during physical examination I am able to express blood from the incision site; no obvious sign of purulent discharge from the incision site Most of the right knee extending down the right lower extremity feels firm and indurated with palpation most significant towards the right knee Evidence of a well-healed incision over the distal right foot following removal of all toes of the right lower extremity Evidence of some skin flaking scabs over the right anterior qureshi Evidence of some small scabs over the left anterior qureshi Some evidence of erythema, mild swelling, and warmth with some induration over the left lower extremity below the knee Adequate range of motion of the bilateral lower extremities significant difficulty No significant pain with palpation over the right knee or bilateral lower extremities Pertinent studies: X-rays of the right knee: Generalized soft tissue swelling with severe prepatellar soft tissue thickening that may relate to infection or prepatellar bursitis Anaerobic culture and Gram stain culture from the wound site of the right knee: Results are still pending; Gram stain preliminary results show few polymorphonuclear leukocytes and few gram-positive cocci in clusters Assessment: Status post incision and drainage of the right knee with cultures taken Cellulitis of the right knee and right lower extremity Right prepatellar bursitis infection Right lower extremity pain Leukocytosis meeting sepsis criteria History of recent arthrectomy with stent and balloon angioplasty of the right lower extremity on 05/14/2016 History of recent surgical removal of all toes of the right foot in June 2016 History of acute myeloid leukemia currently in remission History of heart catheterization with stent placement and atrial fibrillation currently on Coumadin anticoagulation therapy Plan: 1. Patient is status post incision and drainage of the right anterior knee at the site of the patella. Dressing has been removed and changed during physical examination. Iodoform gauze has been discontinued. Patient may weight-bear to tolerance on the right lower extremity. We discussed the patient will continue to be followed by Dr. Naylor in infectious disease and Dr. Lloyd in medicine. We're not currently planning for further surgical intervention in regards to his right knee. We may continue with daily dressing changes over the right knee. We discussed he'll be clear for discharge once cleared by medicine and infectious disease. Following discharge, we will plan to have him follow-up outpatient in approximately 1 week for further evaluation. He should keep the incision/wound site of the right knee clean, dry, and intact. Do not soak in a tub. He may elevate the right lower extremity and apply ice over the wound site for comfort and support as needed. He should keep the wound site covered. He should avoid excessive activities of the right lower extremity. We'll continue to follow patient closely. 2. Dr. Lloyd in medicine will continue to follow the patient for sepsis and cellulitis 3. Patient has been seen and examined by Dr. Naylor in infectious disease and will continue to follow the patient for further evaluation and treatment recommendations 4. From an orthopedic standpoint, patient will be clear for discharge once cleared by medicine and infectious disease 5. Following discharge, patient may follow-up with Yuniel Cox PA-C or Dr. Vinay Pal at [facility] in 1 week for follow-up evaluation 6. Patient has been discussed in detail with Dr. Vinay Pal and he agrees with this plan
[2016-10-28 09:57] LABS: Anisocytosis Slight; Basophils # (A) 0.1 k/uL (0-0.2); Basophils % (A) 1 %; CH 26.2; Eosinophils # (A) 0.6 k/uL (0-0.7); Eosinophils % (A) 6 %; HCT 35.3 % (39.0-53.0); HDW 3.12; HGB 10.6 gm/dL (13.0-17.5); Hypochromasia Marked; Luc # (Auto) 0.15; Luc % (Auto) 2; Lymphocytes # (A) 1.1 k/uL (1.0-4.8); Lymphocytes % (A) 11 %; MCH 26.4 pg (25.0-35.0); MCHC 30.1 g/dL (31.0-37.0); MCV 87.8 fL (80.0-100.0); Mean Platelet Volume 7.2; Monocytes # (A) 0.4 k/uL (0-1.0); Monocytes % (A) 4 %; Neutrophils # (A) 7.8 k/uL (1.3-7.7); Neutrophils % (A) 77 %; RBC 4.03 m/uL (4.30-5.90); RDW 19.2 % (11.5-15.5); WBC 10.1 k/uL (3.8-10.6); WBC (Perox) 10.84
[2016-10-28 10:04] LABS: Anion Gap 11 mmol/L; Blood Urea Nitrogen 8 mg/dL (9-20); Calcium 8.7 mg/dL (8.4-10.2); Carbon Dioxide 27 mmol/L (22-30); Chloride 103 mmol/L (98-107); Glucose 82 mg/dL (74-99); Non-African American GFR(MDRD) >60 (>60 ml/min/1.73 sqM); Potassium 3.7 mmol/L (3.5-5.1); Sodium 141 mmol/L (137-145)
[2016-10-28 10:07] LABS: INR 1.3 (<1.2); Prothrombin Time 13.1 sec (9.0-12.0)
[2016-10-28] MEDS: ASPIRIN 81 MG CHEW PO SCH (11:51)
--- NOTE | 2016-10-28 15:36 | P.PN ---
Subjective This is a 61-year-old male who is being seen in consultation for preoperative clearance. He is day #1 postoperative incision and drainage of the right knee. He has an extensive history of chronic atrial fibrillation on Coumadin and metoprolol for rate control, coronary artery disease with a stent in 1998, hypertension, hyperlipidemia, severe peripheral arterial disease and multiple toe amputations. Upon examination today he is seen resting in bed comfortably in no acute distress. He denies chest pain, shortness of breath, dizziness, diaphoresis, palpitations, nausea or vomiting. Objective - Vital Signs Vital signs: Vital Signs Temp 97.9 F 10/28/16 15:00 Pulse 84 10/28/16 15:00 Resp 16 10/28/16 15:00 BP 157/76 10/28/16 15:00 Pulse Ox 93 L 10/28/16 15:00 Intake & Output 10/27/16 10/28/16 10/28/16 18:59 06:59 18:59 Intake Total 1150 960 Output Total 500 Balance 650 960 Intake: IV 1150 Oral 960 Output: Urine 400 Estimated Blood Loss 100 Other: Voiding Method Urinal Urinal # Voids 1 1 - Exam GENERAL: Well-appearing, well-nourished and in no acute distress. NECK: Supple without JVD or thyromegaly. LUNGS: Breath sounds clear to auscultation bilaterally and equal. No wheezes, rales or rhonchi. HEART: Irregular rate and rhythm without murmurs, rubs or gallops. S1 and S2 heard. ABDOMEN: Soft, nontender, normoactive bowel sounds. EXTREMITIES: Normal range of motion, no edema. No clubbing or cyanosis. Johnnie wrap around her right knee. - Labs CBC & Chem 7: 10/28/16 09:20 10/28/16 09:20 Labs: Abnormal Lab Results - Last 24 Hours (Table) 10/28/16 10/28/16 10/28/16 Range/Units 09:20 09:20 09:20 RBC 4.03 L (4.30-5.90) m/uL Hgb 10.6 L (13.0-17.5) gm/dL Hct 35.3 L (39.0-53.0) % MCHC 30.1 L (31.0-37.0) g/dL RDW 19.2 H (11.5-15.5) % Neutrophils # 7.8 H (1.3-7.7) k/uL PT 13.1 H (9.0-12.0) sec INR 1.3 H (<1.2) BUN 8 L (9-20) mg/dL Creatinine 0.61 L (0.66-1.25) mg/dL Microbiology - Last 24 Hours (Table) 10/27/16 14:27 Gram Stain - Preliminary Knee - Right Wound Culture - Preliminary Presumptive Staph aureus 10/26/16 11:50 Blood Culture - Preliminary Blood No Growth after 48 hours 10/26/16 11:45 Blood Culture - Preliminary Blood No Growth after 48 hours 10/27/16 14:27 Gram Stain - Preliminary Knee - Right Wound Culture - Preliminary Presumptive Staph aureus 10/27/16 14:27 Anaerobic Culture - Preliminary Knee - Right 10/27/16 14:27 Anaerobic Culture - Preliminary Knee - Right Assessment and Plan Plan: ASSESSMENT 1. Chronic atrial fibrillation, rate controlled on chronic anticoagulation with Coumadin. 2. Severe peripheral arterial disease. 3. Systolic heart failure, ejection fraction 45-50% compared to previous from May 2015. 4. Essential hypertension. 5. History of coronary artery disease with a stent in 1998. PLAN The patient has been started back on his Coumadin for prevention of thromboembolic event secondary to chronic atrial fibrillation. We thank you for this consultation and the ability to participate in the care of this patient while he is hospitalized. We will continue to be available as needed. Nurse Practitioner note has been reviewed, I agree with a documented findings and plan of care. Patient was seen and examined.
[2016-10-28] MEDS: WARFARIN 2.5 MG TAB PO SCH (17:11)
[2016-10-28] MEDS: VANCOMYCIN 1,250 MG in SODIUM CHLORIDE 0.9% 250 ML IVPB SCH (17:40)
--- NOTE | 2016-10-28 18:41 | P.PN ---
<Teri Velazquez - Last Filed: 10/28/16 18:24> Progress Note - Text DATE OF SERVICE: 10/28/2016 PRESENTING COMPLAINT: Right knee redness and swelling INTERVAL HISTORY: 61-year-old patient for who for the past 5 days has had increasing redness and pain from right knee with chills and fever. Right knee/leg is swollen rather infected looking and was admitted for the same. 10/27/2016: Patient resting quietly in bed, waiting to go for procedure this morning. Patient remains nothing by mouth. 10/28/2016: Patient resting quietly in bed, states he is much improved. Some soreness, but pain is reduced greatly. REVIEW OF SYSTEMS: Done for constitutional ,cardiovascular, GI, pulmonary with relevant findings as above. CURRENT MEDICATIONS [place], Lipitor, Neurontin, Lopressor, Zosyn, vancomycin, Ultram. PHYSICAL EXAM VITAL SIGNS: Temperature 97.8, pulse 94, respiratory rate 18, blood pressure 162/77, 93% on room air GENERAL APPEARANCE: Lying in bed, not in distress. EYES: Pupils equal. Conjunctiva normal. NECK: JVD not raised. Mass not palpable. RESPIRATORY: Respiratory effort normal. Lungs clear to auscultation. CARDIOVASCULAR: First and second sounds normal. No edema. ABDOMEN: Soft. Liver and spleen not palpable. No tenderness. No mass palpable. PSYCHIATRY: Alert and oriented x3. Mood and affect normal. EXTREMITIES: Right knee wrapped with an Johnnie wrap, mild swelling tender to palpation, minor distal swelling toes on the patient's right foot are removed( this occurred from a different procedure) INVESTIGATIONS: LABS: Hemoglobin 10.6, BUN 8 creatinine 0.61 Right knee culture presumptive staph aureus ASSESSMENT: -Acute severe cellulitis of the right knee with swelling of the right lower extremity in a patient who has peripheral arterial disease. Concern of underlying infection of the tissues. -History of atrial fibrillation, chronically on Coumadin. -Coronary artery disease, prior history of stent back in 1998. -Essential hypertension. -Hyperlipidemia. -Peripheral arterial disease. -History of amputation of the right toes -Coumadin monitoring. PLAN: Coumadin has been restarted. Dressing changes per orthopedic surgery, patient may weight-bear as tolerated on the extremity. Antibiotic therapy will continue with vancomycin and Zosyn until culture results/sensitivities are back. Plan of care discussed with the patient he is in agreement we will continue to follow closely. FOOD SERVICES DIRECTOR statement: Patient was seen and examined by nurse practitioner Teri Velazquez and all elements of the case discussed with attending Dr. Lloyd <Nate Lloyd - Last Filed: 10/29/16 10:59> Progress Note - Text Attending note. Date of service-10/28/2016 This patient was seen and examined by me . I reviewed the note of my nurse practitioner, Ms. Velazquez. Discussed with her, additional findings as below. Patient had drainage of the right prepatellar bursa abscess. Pain is much improved tolerating his diet. Laying in bed. On examination: Dressing over the right knee. Lungs decreased breath sounds. Cardio vascular first seconds are normal Investigations: Normal white count INR 1.3, cultures growing staph aureus Assessment and plan: Acute right prepatellar bursa abscess and associated severe cellulitis status post I&D, pus was drained cultures growing staph aureus Continue with IV vancomycin and Zosyn care was discussed with the patient
[2016-10-28] MEDS: ATORVASTATIN 80 MG TAB PO SCH (20:28)
[2016-10-29] MEDS: HYDROcodone/APAP 5-325MG 1 EACH TAB PO PRN ×4 (00:47→18:18)
[2016-10-29] MEDS: SODIUM CHLORIDE 0.9% 1,000 ML IV SCH ×3 (00:48→20:30)
[2016-10-29] MEDS: VANCOMYCIN 1,250 MG in SODIUM CHLORIDE 0.9% 250 ML IVPB SCH ×3 (03:27→17:18)
[2016-10-29] MEDS: PIPERACILLIN-TAZOBACTAM 3.375 GM in DEXTROSE/WATER 1 50ML.BAG IVPB SCH ×3 (04:40→20:29)
[2016-10-29] MEDS: CLOPIDOGREL 75 MG TAB PO SCH (08:11)
[2016-10-29] MEDS: ASPIRIN 81 MG CHEW PO SCH (08:11)
[2016-10-29] MEDS: GABAPENTIN 400 MG CAP PO SCH ×3 (08:11→20:31)
[2016-10-29] MEDS: METOPROLOL TARTRATE 12.5 MG TAB PO SCH ×2 (08:11→20:31)
[2016-10-29 09:19] LABS: INR 1.8 (<1.2); Prothrombin Time 17.5 sec (9.0-12.0)
[2016-10-29 09:34] LABS: Anion Gap 10 mmol/L; Blood Urea Nitrogen 7 mg/dL (9-20); Carbon Dioxide 28 mmol/L (22-30); Chloride 105 mmol/L (98-107); Glucose 106 mg/dL (74-99); Non-African American GFR(MDRD) >60 (>60 ml/min/1.73 sqM); Potassium 3.7 mmol/L (3.5-5.1); Sodium 143 mmol/L (137-145)
--- NOTE | 2016-10-29 16:13 | P.PN ---
Progress Note - Text Postoperative day #2 Patient is seen and examined today at bedside. The patient has some pain around the surgical site as expected but he feels his knee is significantly improved. Pain is being controlled with medication. He denies any further fevers. He continues to be on IV pain antibiotics and Zosyn Physical Exam Afebrile with stable vital signs Abdomen is soft nontender. Chest has good excursion deep and space expiration The incision site at his knee is clean and intact. There is some mild erythema but no active purulence. There is some bloody drainage from the site but there is no pus. Extremities have not had neurologic change from prior to surgery. He does have a forefoot amputation which appears stable Calves and thighs were soft nontender without evidence of DVT. Assessment/Plan Postoperative day #2 status post irrigation and excisional debridement of right knee prepatellar septic bursitis which appears to be improving appropriately Patient is progressing as expected from the surgery. I do not plan further surgery for him at this point. He should continue daily dry dressing changes. There will be some bloody drainage as expected but as long as there is no purulence we do not plan any further surgery. He will need further antibiotics. He really has been growing staph aureus and I will be addressed with antibiotic plan with infectious disease. The infection does not appear to stem into his knee joint or into the bone but he is quite vasculopathic and will need more aggressive treatment for his healing of the infection site given his increased risk. We will continue to increase the patient's mobilization with therapy. He may weight-bear as tolerated We will continue pain control with oral or IV medications. We'll continue to follow patient closely. From a orthopedic standpoint it is okay for him to be discharged with an antibiotic treatment plan and daily dressing changes. He may weight-bear as tolerated. If he is able to be discharged during the week this week and I will plan to follow him up on Thursday of this week. If he is discharged Thursday or over the weekend I'll see him Thursday or Thursday in the office.
[2016-10-29] MEDS: WARFARIN 2.5 MG TAB PO SCH (17:18)
--- NOTE | 2016-10-29 18:14 | P.PN ---
<Teri Velazquez - Last Filed: 10/29/16 18:06> Progress Note - Text DATE OF SERVICE: 10/29/2016 PRESENTING COMPLAINT: Right knee redness and swelling INTERVAL HISTORY: 61-year-old patient for who for the past 5 days has had increasing redness and pain from right knee with chills and fever. Right knee/leg is swollen rather infected looking and was admitted for the same. 10/27/2016: Patient resting quietly in bed, waiting to go for procedure this morning. Patient remains nothing by mouth. 10/28/2016: Patient resting quietly in bed, states he is much improved. Some soreness, but pain is reduced greatly. 10/29/2016: Patient resting quietly in bed, knee is much improved has been ambulatory in the room, tolerating his diet, allowed to weight-bear as tolerated last BM was today. Does complain of some mild stiffness and soreness, as expected from surgery. REVIEW OF SYSTEMS: Done for constitutional ,cardiovascular, GI, pulmonary with relevant findings as above. CURRENT MEDICATIONS [place], Lipitor, Neurontin, Lopressor, Zosyn, vancomycin, Ultram. PHYSICAL EXAM VITAL SIGNS: Temperature 97.1, respirations 17, pulse 78, blood pressure 166/94, oxygen saturation 95% on room air. GENERAL APPEARANCE: Lying in bed, not in distress. EYES: Pupils equal. Conjunctiva normal. NECK: JVD not raised. Mass not palpable. RESPIRATORY: Respiratory effort normal. Lungs clear to auscultation. CARDIOVASCULAR: First and second sounds normal. No edema. ABDOMEN: Soft. Liver and spleen not palpable. No tenderness. No mass palpable. PSYCHIATRY: Alert and oriented x3. Mood and affect normal. EXTREMITIES: Right knee wrapped with an Johnnie wrap, mild swelling tender to palpation, minor distal swelling toes on the patient's right foot are removed( this occurred from a different procedure) INVESTIGATIONS: LABS: Hemoglobin 10.6, INR 1.8, BUN 7 creatinine 0.63. Accu-Cheks noted Right knee culture Staphylococcus aureus ASSESSMENT: -Acute right prepatellar bursa abscess and associated severe cellulitis status post I&D, pus was drained cultures growing staph aureus -History of atrial fibrillation, chronically on Coumadin. -Coronary artery disease, prior history of stent back in 1998. -Essential hypertension. -Hyperlipidemia. -Peripheral arterial disease. -History of amputation of the right toes -Coumadin monitoring. PLAN: Dressing changes per orthopedic surgery, patient may weight-bear as tolerated on the extremity. Stable from orthopedic standpoint for discharge Antibiotic therapy will continue with vancomycin and Zosyn. Plan of care discussed with the patient he is in agreement we will continue to follow closely. PROCESS MANUFACTURING ENGINEER statement: Patient was seen and examined by nurse practitioner Teri Velazquez and all elements of the case discussed with attending Dr. Lloyd <Nate Lloyd - Last Filed: 10/29/16 23:06> Progress Note - Text Attending note. Date of service-10/29/2016 This patient was seen and examined by me . I reviewed the note of my nurse practitioner, Ms. Velazquez. Discussed with her, additional findings as below. Admitted with prepatellar bursa abscess status post I&D. Patient is better controlled. Growing MRSA On examination: Afebrile, lungs decreased breath sounds, blood pressure 166/94, right been addressing Investigations: Culture growing MRSA final determination pending Assessment and plan: Right knee prepatellar bursa abscess status post I&D growing MRSA full results pending Care was discussed with the patient continued antibiotics and await final culture results to determine antibiotics
[2016-10-29] MEDS: ATORVASTATIN 80 MG TAB PO SCH (20:31)
[2016-10-30] MEDS: HYDROcodone/APAP 5-325MG 1 EACH TAB PO PRN ×2 (00:46→07:31)
[2016-10-30] MEDS: VANCOMYCIN 1,250 MG in SODIUM CHLORIDE 0.9% 250 ML IVPB SCH ×2 (01:35→09:57)
[2016-10-30] MEDS: PIPERACILLIN-TAZOBACTAM 3.375 GM in DEXTROSE/WATER 1 50ML.BAG IVPB SCH ×2 (04:38→13:46)
[2016-10-30] MEDS: SODIUM CHLORIDE 0.9% 1,000 ML IV SCH ×2 (04:38→15:10)
[2016-10-30 07:26] VITALS: RESP 18
[2016-10-30] MEDS: METOPROLOL TARTRATE 12.5 MG TAB PO SCH (07:31)
[2016-10-30] MEDS: GABAPENTIN 400 MG CAP PO SCH ×2 (07:31→15:59)
[2016-10-30] MEDS: CLOPIDOGREL 75 MG TAB PO SCH (07:31)
[2016-10-30] MEDS: ASPIRIN 81 MG CHEW PO SCH (07:31)
[2016-10-30 08:50] LABS: Anion Gap 9 mmol/L; Blood Urea Nitrogen 6 mg/dL (9-20); Carbon Dioxide 31 mmol/L (22-30); Chloride 104 mmol/L (98-107); Glucose 81 mg/dL (74-99); Non-African American GFR(MDRD) >60 (>60 ml/min/1.73 sqM); Potassium 3.5 mmol/L (3.5-5.1); Sodium 144 mmol/L (137-145)
[2016-10-30 08:52] LABS: INR 2.2 (<1.2); Prothrombin Time 21.1 sec (9.0-12.0)
[2016-10-30 14:51] VITALS: BP 159/79; PULSE 72; TEMP 97.6
[2016-10-30] MEDS ORDERED: VANCOMYCIN TROUGH DUE 1 EACH MISC MISCELLANE ONE (17:00)
[2016-10-30] MEDS ORDERED: WARFARIN 5 MG TAB PO SCH (18:00)
--- NOTE | 2016-10-31 18:52 | P.DS ---
Providers Date of admission: 10/26/16 12:29 Expected date of discharge: 10/30/16 Attending physician: Nate Lloyd Consults: 10/26/16 17:55 Consult Physician Routine Consulting Provider: Shemar Ashton Consult Reason/Comments: infected rightleg/severe PAD Do you want consulting provider notified?: Yes 10/26/16 17:56 Consult Physician Routine Consulting Provider: Galileo Gan Consult Reason/Comments: cad Do you want consulting provider notified?: Yes 10/26/16 17:57 Consult Physician Routine Consulting Provider: Juan Manuel Naylor Consult Reason/Comments: infected r leg Do you want consulting provider notified?: Yes Primary care physician: [place] Hospital Course: Final diagnosis: -Acute right prepatellar bursa abscess and associated severe cellulitis status post I&D, pus was drained cultures growing MSSA -History of atrial fibrillation, chronically on Coumadin. -Coronary artery disease, prior history of stent back in 1998. -Essential hypertension. -Hyperlipidemia. -Peripheral arterial disease. -History of amputation of the right toes -Coumadin monitoring. Hospital course: This patient presents with a severe prepatellar bursa abscess and cellulitis status post I&D. Cultures growing MSSA. Responded very well to antibiotics. On the day of discharge discharge pain is greatly controlled, afebrile, normalized white count. INR is 2.2. Cultures positive for MSSA. Discharge planning more than 35 minutes Physical examination: Decreased tenderness around the right knee, dressing in place, cardiovascular first seconds are normal Consultations: dr. Pal from orthopedics Dr. Naylor for infectious disease Dr. Pandya from vascular surgery Plan - Discharge Summary New Discharge Prescriptions: New Clindamycin [Cleocin] 150 mg PO Q6H #28 capsule Continue Warfarin [Coumadin] 5 mg PO TH Metoprolol Tartrate [Lopressor] 12.5 mg PO BID Gabapentin [Neurontin] 800 mg PO TID Warfarin [Coumadin] 2.5 mg PO SUMOTUWEFRSA oxyCODONE HCL 10 mg PO Q4H PRN PRN Reason: Pain Clopidogrel [Plavix] 75 mg PO DAILY Atorvastatin [Lipitor] 80 mg PO HS Aspirin EC [Ecotrin Low Dose] 81 mg PO DAILY Discontinued Cephalexin [Keflex] 500 mg PO QID Discharge Medication List Warfarin [Coumadin] 5 mg PO TH 12/12/13 [History] Gabapentin [Neurontin] 800 mg PO TID 09/14/15 [History] Metoprolol Tartrate [Lopressor] 12.5 mg PO BID 09/14/15 [History] Warfarin [Coumadin] 2.5 mg PO SUMOTUWEFRSA 10/17/15 [History] oxyCODONE HCL 10 mg PO Q4H PRN 05/12/16 [History] Clopidogrel [Plavix] 75 mg PO DAILY 06/10/16 [History] Atorvastatin [Lipitor] 80 mg PO HS 10/03/16 [History] Aspirin EC [Ecotrin Low Dose] 81 mg PO DAILY 10/26/16 [History] Clindamycin [Cleocin] 150 mg PO Q6H #28 capsule 10/30/16 [Rx] Follow up Appointment(s)/Referral(s): Eugenio Murillo DO [Primary Care Provider] - 1 Week (office will call with an appointment) Yuniel Cox PAC [PHYSICIAN PHOTO GRAPHICS LIBRARIAN] - 11/04/16 10:30 am (Patient may follow-up with Yuniel Cox PA-C or Dr. Vinay Pal at [facility] 2-5 days following discharge. ) Ambulatory/Diagnostic Orders: Basic Metabolic Panel [LAB.AMB] Time Frame: 3 Days, Location: Determined By Patient Complete Blood Count w/diff [LAB.AMB] Time Frame: 3 Days, Location: Determined By Patient Patient Instructions/Handouts: Cellulitis (DC) Activity/Diet/Wound Care/Special Instructions: 1. Keep dressing over the right knee incision/wound site clean, dry, and intact 2. Keep sutures at the right knee incision/wound site intact 3. Ambulate as tolerated right lower extremity 4. May elevate and apply ice over the right lower extremity for comfort or support as needed 5. Do not soak in tub Up with cane. Cardiac diet. Discharge Disposition: HOME SELF-CARE
== END 2016-10-30 16:10 | disposition home or self-care (01) | DRG 854 ==
LOC: EC 11:12 → 3SUR 12:29 → 4MS4W 10-28 11:25
PROVIDERS: ADMIT Hospitalist; ATTEND Hospitalist
PROC: 0SBC0ZZ Excision of Right Knee Joint, Open Approach (ICD-10-PCS; principal; 2016-10-27 09:50)
DX: A41.9 Sepsis, unspecified organism (principal); Z94.81 Bone marrow transplant status; I11.0 Hypertensive heart disease with heart failure; C92.01 Acute myeloblastic leukemia, in remission; I50.22 Chronic systolic (congestive) heart failure; M70.41 Prepatellar bursitis, right knee; L03.115 Cellulitis of right lower limb; I48.2 Chronic atrial fibrillation; E78.5 Hyperlipidemia, unspecified; I73.9 Peripheral vascular disease, unspecified; I25.10 Atherosclerotic heart disease of native coronary artery without angina pectoris; Z79.01 Long term (current) use of anticoagulants; Z79.02 Long term (current) use of antithrombotics/antiplatelets; Z79.82 Long term (current) use of aspirin; Z79.899 Other long term (current) drug therapy; Z95.5 Presence of coronary angioplasty implant and graft; Z92.21 Personal history of antineoplastic chemotherapy; Z87.891 Personal history of nicotine dependence; Z86.19 Personal history of other infectious and parasitic diseases; Z89.421 Acquired absence of other right toe(s)
CPT/HCPCS: 36415; 71010; 80048; 80053; 80202; 81001; 83605; 85025; 85610; 85730; 87040; 87070; 87075; 87077; 87186; 87205; 93005; 93306; 96365; 99285

== ENCOUNTER → 2017-04-07 | Outpatient (CLI) | payer OTHER ==
--- NOTE | 2017-04-07 15:11 | XR ---
Abdomen HISTORY: Microscopic hematuria Frontal view of the abdomen submitted on [address] abdomen 07/12/2013 There is a metallic density superimposed over the region of the left renal pelvis measuring approxima tely 2 x 9 mm which could possibly represent vascular calcification. Renal calcifications may be obsc ured by overlying bowel gas. There are vascular calcifications within the pelvis. Prostate calcificat ions are also present. There is a stent in the distribution of the femoral vasculature in the right g roin. Suspect the heart is borderline enlarged. IMPRESSION: Renal calcifications could be obscured. Atherosclerotic peripheral vascular occlusive dis ease. Additional findings above.
== END | disposition home or self-care (01) ==
LOC: RADXRMAIN 14:07
PROVIDERS: ATTEND Urology
DX: N42.89 Other specified disorders of prostate (principal); R31.29 Other microscopic hematuria; Z95.828 Presence of other vascular implants and grafts
CPT/HCPCS: 74018

== ENCOUNTER → 2017-04-15 | Outpatient (CLI) | payer OTHER ==
--- NOTE | 2017-04-15 18:16 | CT ---
EXAMINATION TYPE: CT urogram wo/w con DATE OF EXAM: 04/15/2017 COMPARISON: 07/12/2013 HISTORY: Patient has no complaints at time of service. Follow up to urinalysis showing microscopic h ematuria. CT DLP: 2709 mGycm, Automated Exposure Control for Dose Reduction was Utilized. CONTRAST: CT scan of the abdomen and pelvis is performed with oral and without and with IV Contrast, patient in jected with 100 mL of Omnipaque 300. FINDINGS: There are numerous small calcifications in both kidneys that measure less than 5 mm. There is no hydr onephrosis. Ureters are not dilated. Lung bases are clear. There is no pleural effusion. Liver appears normal. Gallbladder is contracted. Bile ducts are not dilated. Spleen and pancreas appear normal. Stomach is large and full of fluid. I see no intestinal wall thickening. There are no dilated loops. There is no ascites. Appendix appear s normal. There is atherosclerotic vascular calcification. There is a 7 mm cortical cyst on the poste rior left kidney. There is a 7 mm cortical cyst anterior right kidney. There is no sign of a solid re nal mass. There is a 2.5 cm diverticulum on the right side of the urinary bladder. I see no bladder m ass. Prostate is enlarged with calcification. There are few sigmoid diverticula. There is no evidence of diverticulitis. I see no bony destructive process.. IMPRESSION: Nonobstructing bilateral renal calculi. Small renal cortical cysts. Right-sided bladder diverticulum. Colonic diverticulosis without diverticulitis. Normal appendix. The re is overall no adverse change compared to old exam.
== END | disposition home or self-care (01) ==
LOC: RADCTMAIN 15:07
PROVIDERS: ATTEND Urology
DX: N20.0 Calculus of kidney (principal); N28.1 Cyst of kidney, acquired; N32.3 Diverticulum of bladder; K57.30 Diverticulosis of large intestine without perforation or abscess without bleeding
CPT/HCPCS: 74178; 74400; Q9967

== ENCOUNTER 2018-07-29 09:52 | Day surgery (SDC) | payer MEDICARE ==
[~2018-07-29 09:52] MED LIST changes: -ALPRAZolam 0.25 MG TAB PO PRN; -ASPIRIN 325 MG TAB PO STA; +LACTATED RINGERS 1,000 ML IV SCH; +LIDOCAINE 1% 20 ML VIAL (10MG/ML) FOR IV START INTRADERMA PRN; -SODIUM CHLORIDE 0.9% 1,000 ML in EMPTY BAG 1 BAG IV ONE
[2018-07-29 10:37] VITALS: TEMP 97.9
[2018-07-29] MEDS ORDERED: PROPOFOL 10 MG/ML 20 ML VIAL IV ONE (12:21)
[2018-07-29] MEDS ORDERED: LIDOCAINE 1% INJ 10MG/ML (20 ML MDV) ONE (12:21)
--- NOTE | 2018-07-29 12:51 | P.PCN ---
Date of Procedure: 07/29/18 Procedure(s) Performed: Procedure: Total colonoscopy. Preoperative diagnosis: Screening for neoplasia patient has history of polyps. Postoperative diagnosis: Sigmoid diverticulosis with no evidence of acute diverticulitis, pictures, polyps or cancer. Preparation: HalfLytely prep. Sedation: Was provided by anesthesia. Brief clinical history: The patient is a 63-year-old male who is scheduled for this evaluation for screening for neoplasia age being his risk factor as well as history of polyps.. He had a prior exam in 2016. No family history of colon cancer. The patient has no abdominal complaints, bleeding or anemia. Procedure: With the patient on his left lateral decubitus position and after informed consent and adequate sedation, the perianal area was inspected and it did not show any fissures or fistulas. There were no masses felt on digital rectal examination. The Olympus CFH 190L video colonoscope was then inserted in the rectum in the usual fashion and advanced to the cecum. There were multiple diverticular orifices seen scattered in the sigmoid with no evidence of acute diverticulitis or strictures. The mucosa appeared healthy. No polyps or tumors were seen or other pathology. I retroflexed the endoscope in the rectum before the endoscope was withdrawn. Low-grade internal hemorrhoids were noted with no evidence of bleeding. The patient tolerated the procedure well. Plan: The patient was reassured. Discussed dietary measures. He will follow up with you as planned and I recommended repeat exam in 5 years.
[2018-07-29 12:58] VITALS: RESP 16
[2018-07-29 13:19] VITALS: BP 125/74; PULSE 68
== END 2018-07-29 13:22 | disposition home or self-care (01) ==
LOC: ORWHC2ENDO 09:52
DX: Z12.11 Encounter for screening for malignant neoplasm of colon (principal); K57.30 Diverticulosis of large intestine without perforation or abscess without bleeding; K64.8 Other hemorrhoids; I25.10 Atherosclerotic heart disease of native coronary artery without angina pectoris; I48.91 Unspecified atrial fibrillation; I10 Essential (primary) hypertension; E78.5 Hyperlipidemia, unspecified; G62.9 Polyneuropathy, unspecified; I73.9 Peripheral vascular disease, unspecified; Z95.5 Presence of coronary angioplasty implant and graft; Z86.010 Personal history of colon polyps; Z79.01 Long term (current) use of anticoagulants; Z79.02 Long term (current) use of antithrombotics/antiplatelets; Z79.899 Other long term (current) drug therapy; Z79.891 Long term (current) use of opiate analgesic
CPT/HCPCS: 45378

== ENCOUNTER 2019-09-26 15:19 | Emergency (ER) | payer MEDICARE ==
[2019-09-26] MEDS ORDERED: hydrALAZINE HCL 20 MG/ML 1 ML VIAL IVP STA (17:13)
--- NOTE | 2019-09-26 17:22 | ED ---
General Adult HPI - General Chief complaint: Recheck/Abnormal Lab/Rx Stated complaint: dizzy,high blood pressure Time Seen by Provider: 09/26/19 16:10 Source: patient, RN notes reviewed, old records reviewed Mode of arrival: ambulatory Limitations: physical limitation - History of Present Illness Initial comments: This is a 64-year-old male with past medical history significant for hypertension. Patient states on Thursday he was ending over picking up radishes and he got dizzy he states that he stood up and about 2 seconds after started ended. Patient states he took his blood pressure that date was in the 180s systolic. Patient states today he bent over again to look at a tire and then he got dizzy and then he stood up and again 1-2 seconds later he states his symptoms completely resolved. Patient states he went to see his primary medical care doctor because of the dizziness and also his blood pressure has been high. Patient denies any headache patient denies any numbness or weakness. Patient denies any chest pain palpitations difficulty breathing shortness of breath. Patient states currently he is asymptomatic in the dizziness and both episodes didn't last more than 2 or 3 seconds. Patient denies any recent fever chills or cough. Patient states that episodes of this in the past and they usually resolve on their own. Patient denies any visual disturbance. He denies any nausea. - Related Data Home Medications Medication Instructions Recorded Confirmed Gabapentin [Neurontin] 800 mg PO TID 09/14/15 09/26/19 oxyCODONE HCL [oxyCODONE HCL (IR)] 10 mg PO DAILY 05/12/16 09/26/19 Clopidogrel [Plavix] 75 mg PO DAILY 06/10/16 09/26/19 Atorvastatin [Lipitor] 80 mg PO DAILY 10/03/16 09/26/19 Apixaban [Eliquis] 5 mg PO BID 07/27/18 09/26/19 Lisinopril [Zestril] 10 mg PO DAILY 07/27/18 09/26/19 Metoprolol Tartrate [Lopressor] 12.5 mg PO BID 09/26/19 09/26/19 Sildenafil Citrate 50 - 100 mg PO DAILY PRN 09/26/19 09/26/19 Allergies Allergy/AdvReac Type Severity Reaction Status Date / Time No Known Allergies Allergy Verified 09/26/19 17:54 Review of Systems ROS Statement: Those systems with pertinent positive or pertinent negative responses have been documented in the HPI. ROS Other: All systems not noted in ROS Statement are negative. Past Medical History Past Medical History: Atrial Fibrillation, Coronary Artery Disease (CAD), Cancer, Hyperlipidemia, Hypertension, Vascular Disorder Additional Past Medical History / Comment(s): ACUTE MYELOID LEUKEMIA DIAGNOSED JULY 2013. LAST CHEMO APPROX 2 YRS AGO., PVD,. PAST HX SHINGLES-RESOLVED NOW History of Any Multi-Drug Resistant Organisms: None Reported Past Surgical History: Heart Catheterization With Stent, Hernia Repair Additional Past Surgical History / Comment(s): COLONOSCOPY, STATES 2 HEART CATHS WITH STENTS, BONE MARROW BX'S, PICC insertion x 2. bone marrow transplant, AORTAGRAM, ARTHRECTOMY WITH STENT AND BALLOON ANGIOPLASTY RIGHT LEG (05/14/2016) RT TOES AMPUTATED Past Anesthesia/Blood Transfusion Reactions: No Reported Reaction Date of Last Stent Placement:: 1999 Past Psychological History: Anxiety, Depression Smoking Status: Former smoker Past Alcohol Use History: Rare Past Drug Use History: Marijuana - Past Family History Father Family Medical History: Coronary Artery Disease (CAD) Brother(s) Family Medical History: Coronary Artery Disease (CAD) Sister(s) Family Medical History: CVA/TIA Mother Family Medical History: Hypertension Additional Family Medical History / Comment(s): BLOOD TRANSFUSION REACTION General Exam - General Exam Comments Initial Comments: GENERAL: Patient is well-developed and well-nourished. Patient is nontoxic and well- hydrated and is in no acute distress. ENT: Neck is soft and supple. No significant lymphadenopathy is noted. Oropharynx is clear. Moist mucous membranes. Neck has full range of motion without eliciting any pain. EYES: The sclera were anicteric and conjunctiva were pink and moist. Extraocular movements were intact and pupils were equal round and reactive to light. Eyelids were unremarkable. PULMONARY: Unlabored respirations. Good breath sounds bilaterally. No audible rales rhonchi or wheezing was noted. CARDIOVASCULAR: There is a regular rate and rhythm without any murmurs gallops or rubs. ABDOMEN: Soft and nontender with normal bowel sounds. SKIN: Skin is clear with no lesions or rashes and otherwise unremarkable. NEUROLOGIC: Patient is alert and oriented x3. Cranial nerves II through XII are grossly intact. Motor and sensory are also intact. Normal speech, volume and content. Symmetrical smile. Finger nose testing is normal bilaterally MUSCULOSKELETAL: Normal extremities with adequate strength and full range of motion. No lower extremity swelling or edema. No calf tenderness. LYMPHATICS: No significant lymphadenopathy is noted PSYCHIATRIC: Normal psychiatric evaluation. Limitations: physical limitation Course Vital Signs 09/26/19 09/26/19 09/26/19 16:12 17:32 18:32 Temperature 98.6 F Pulse Rate 67 71 73 Respiratory 18 16 18 Rate Blood Pressure 175/83 162/95 138/75 O2 Sat by Pulse 98 98 99 Oximetry Medical Decision Making - Medical Decision Making EKG shows atrial fibrillation at 71 bpm QRS is 84 QT interval 370 QTC is 410. Patient's EKG shows no ST segment elevation or depression. Patient remained asymptomatic throughout the ED stay. Patient received 10 of hydralazine and blood pressure came down to systolic of 138. Patient will be discharged home to follow-up and document his blood pressures at home for the primary medical care doctor. Disposition Clinical Impression: Hypertensive urgency Disposition: HOME SELF-CARE Condition: Good Instructions (If sedation given, give patient instructions): Hypertension (ED) Additional Instructions: Patient should increase his metoprolol to 25 mg twice a day. Patient should take his blood pressure before every meal and at night and document this and a sprain sheet like fashion. Patient should follow-up with his primary medical care doctor Is patient prescribed a controlled substance at d/c from ED?: No Referrals: Eugenio Murillo DO [Primary Care Provider] - 1-2 days Time of Disposition: 18:36
[2019-09-26 18:33] VITALS: BP 138/75; PULSE 73; RESP 18
[2019-09-26 18:59] VITALS: TEMP 98
== END 2019-09-26 18:58 | disposition home or self-care (01) ==
LOC: EC 15:19
DX: I16.0 Hypertensive urgency (principal); I48.91 Unspecified atrial fibrillation; I25.10 Atherosclerotic heart disease of native coronary artery without angina pectoris; E78.5 Hyperlipidemia, unspecified; Z87.891 Personal history of nicotine dependence; Z95.5 Presence of coronary angioplasty implant and graft; Z85.6 Personal history of leukemia; Z79.02 Long term (current) use of antithrombotics/antiplatelets; Z79.899 Other long term (current) drug therapy; Z82.49 Family history of ischemic heart disease and other diseases of the circulatory system
CPT/HCPCS: 93005; 99284; 96374; J0360

== ENCOUNTER 2021-09-05 22:32 | Emergency (ER) | payer MEDICARE ==
[2021-09-05 22:49] VITALS: BP 151/86; PULSE 77; RESP 16; TEMP 97.7
[2021-09-05] MEDS ORDERED: LIDOCAINE 1%-EPI 1:100,000 20 ML VIAL SQ STA (22:54)
--- NOTE | 2021-09-05 23:43 | XR ---
EXAMINATION TYPE: XR ribs LT w pa chest xray DATE OF EXAM: 09/05/2021 COMPARISON: Chest x-ray 02/09/2019 HISTORY: Left rib pain TECHNIQUE: 5 views FINDINGS: Heart is normal. Lungs are clear of consolidation. No pleural effusion or pneumothorax. The re is deformity left eighth rib consistent with old healed fracture. There is evidence of an acute no ndisplaced fracture left posterior lateral ninth rib. There is spurring in the thoracic spine. IMPRESSION: There is an acute fracture left ninth rib. No cardiopulmonary disease.
--- NOTE | 2021-09-06 00:11 | CT ---
EXAMINATION TYPE: CT brain janny wo con DATE OF EXAM: 09/05/2021 COMPARISON: 10/03/2016 HISTORY: fall CT DLP: 1605.7 mGycm Automated exposure control for dose reduction was used. Ventricles have normal size. There is no mass effect or midline shift. No sign of intracranial hemorr ellie. The calvarium is intact. There is left occipital scalp hematoma noted. Skull base is intact. Th ere is normal aeration of the mastoid sinuses. The cervical vertebra have normal alignment. Disc spaces are fairly normal for age. Posterior pelvis are intact. No compression fracture. Facet joints are intact. There is mild hypertrophic facet arthro evens. Prevertebral soft tissues are intact. There is some minimal disc space narrowing at C5-6 and C 6-7. IMPRESSION: Minor degenerative hypertrophic changes in the cervical spine. No fracture. No change. No acute intracranial abnormality. Left occipital scalp hematoma. Brain unchanged compared to old patience m.
--- NOTE | 2021-09-06 00:47 | ED ---
Head Injury HPI - General Chief complaint: Head Injury Stated complaint: Head Injury, Fall Time Seen by Provider: 09/05/21 22:53 Source: patient Mode of arrival: ambulatory Limitations: no limitations - History of Present Illness Initial comments: This is a pleasant 66-year-old male who presents after a trip and fall where he struck his head on cement. Patient also hit his left ribs on the way down. Patient is on Eliquis for atrial fibrillation. Patient denied any preceding symptomology. No symptoms of syncope. There was no chest pain or shortness of breath. Patient did not loose consciousness. He denies any vision or hearing disturbance. No slurred speech. No neck pain. No focal weakness. No dizziness. No numbness or tingling. No headache, no fever or chills, no changes in vision or hearing, no sore throat or difficulty with speech, no neck pain, no chest pain or shortness of breath, no abdominal pain, no nausea or vomiting, no changes in urination or bowel movements, no numbness or tingling, no extremity pain, no skin rashes or lesions. - Related Data Home Medications Medication Instructions Recorded Confirmed Gabapentin [Neurontin] 800 mg PO TID 09/14/15 09/26/19 oxyCODONE HCL [oxyCODONE HCL (IR)] 10 mg PO DAILY 05/12/16 09/26/19 Clopidogrel [Plavix] 75 mg PO DAILY 06/10/16 09/26/19 Atorvastatin [Lipitor] 80 mg PO DAILY 10/03/16 09/26/19 Apixaban [Eliquis] 5 mg PO BID 07/27/18 09/26/19 Lisinopril [Zestril] 10 mg PO DAILY 07/27/18 09/26/19 Metoprolol Tartrate [Lopressor] 12.5 mg PO BID 09/26/19 09/26/19 Sildenafil Citrate 50 - 100 mg PO DAILY PRN 09/26/19 09/26/19 Allergies/Adverse reactions: Allergies Allergy/AdvReac Type Severity Reaction Status Date / Time No Known Allergies Allergy Verified 09/05/21 22:44 Review of Systems ROS Statement: Those systems with pertinent positive or pertinent negative responses have been documented in the HPI. ROS Other: All systems not noted in ROS Statement are negative. Past Medical History Past Medical History: Atrial Fibrillation, Coronary Artery Disease (CAD), Cancer, Hyperlipidemia, Hypertension, Vascular Disorder Additional Past Medical History / Comment(s): ACUTE MYELOID LEUKEMIA DIAGNOSED JULY 2013. LAST CHEMO APPROX 2 YRS AGO., PVD,. PAST HX SHINGLES-RESOLVED NOW History of Any Multi-Drug Resistant Organisms: None Reported Past Surgical History: Heart Catheterization With Stent, Hernia Repair Additional Past Surgical History / Comment(s): COLONOSCOPY, STATES 2 HEART CATHS WITH STENTS, BONE MARROW BX'S, PICC insertion x 2. bone marrow transplant, AORTAGRAM, ARTHRECTOMY WITH STENT AND BALLOON ANGIOPLASTY RIGHT LEG (05/14/2016) RT TOES AMPUTATED Past Anesthesia/Blood Transfusion Reactions: No Reported Reaction Date of Last Stent Placement:: 1999 Past Psychological History: Anxiety, Depression Smoking Status: Former smoker Past Alcohol Use History: Occasional Past Drug Use History: Marijuana - Past Family History Father Family Medical History: Coronary Artery Disease (CAD) Brother(s) Family Medical History: Coronary Artery Disease (CAD) Sister(s) Family Medical History: CVA/TIA Mother Family Medical History: Hypertension Additional Family Medical History / Comment(s): BLOOD TRANSFUSION REACTION General Exam Limitations: no limitations General appearance: alert, in no apparent distress Head exam: Present: other (Patient has a hematoma noted to the occipital scalp. There is a small laceration involved. No significant tenderness or crepitus.) Eye exam: Present: normal appearance, PERRL, EOMI. Absent: scleral icterus, conjunctival injection, periorbital swelling ENT exam: Present: normal exam, normal oropharynx, mucous membranes dry, mucous membranes moist, normal external ear exam Neck exam: Present: normal inspection, full ROM. Absent: tenderness, meningismus, lymphadenopathy Respiratory exam: Present: normal lung sounds bilaterally, chest wall tenderness (Patient has some tenderness to left lower ribs. No ecchymosis. No break in skin integrity.). Absent: respiratory distress, wheezes, rales, rhonchi, stridor, accessory muscle use, decreased breath sounds, prolonged expiratory Cardiovascular Exam: Present: regular rate, normal rhythm, normal heart sounds. Absent: systolic murmur, diastolic murmur, rubs, gallop, clicks GI/Abdominal exam: Present: soft, normal bowel sounds. Absent: distended, tenderness, guarding, rebound, rigid Extremities exam: Present: normal inspection, full ROM, normal capillary refill. Absent: tenderness, pedal edema, joint swelling, calf tenderness Back exam: Present: normal inspection Neurological exam: Present: alert, oriented X3, CN II-XII intact. Absent: altered Expanded Patient oriented to: Present: person, place, time Speech: Present: fluid speech Cerebellar function: Finger to Nose: Normal, Romberg: Normal Upper motor neuron: Elmer Neglect: Normal, Pronator Drift: Normal, Babinski Sign: Normal, Sensory Extinction: Normal Motor strength exam: RUE: 5, LUE: 5, RLE: 5, LLE: 5 Eye Response: (4) open spontaneously Motor Response: (6) obeys commands Verbal Response: (5) oriented [place] Total: 15 Psychiatric exam: Present: normal affect, normal mood Skin exam: Present: warm, dry, intact, normal color. Absent: rash Course Vital Signs 09/05/21 22:44 Temperature 97.7 F Pulse Rate 77 Respiratory 16 Rate Blood Pressure 151/86 O2 Sat by Pulse 96 Oximetry Procedures - Laceration Laceration #1 Consent Obtained: verbal consent Indication: laceration Site: scalp Size (cm): 3 Description: irregular, clean Depth: simple, single layer Anesthetic Used: lidocaine 1%, with epi Anesthesia Technique: local infiltration Amount (mls): 2 Pre-repair: wound explored, irrigated extensively, deep structures intact Type of Sutures: other (siobhan) Patient Tolerated Procedure: well, no complications Medical Decision Making - Medical Decision Making Patient counseled on wound care. Patient counseled on deep breathing. Staple removal in 10 days. Counseled on head injury instructions. Told to have family stay with him at all times the next 24 hours. Patient was told to return to the ER for any signs or symptoms worsen. Told to return immediately if any other problems arise. All questions answered. Treatment plan discussed. Patient in agreement Every effort has been made to ensure accuracy of this dictation. However, due to the limitations of electronic medical records and dictation devices, errors in charting still occur. Patient has oxycodone at home. He can continue this pain medication as directed by his regular physician. Other conservative therapy discussed. Professor Of Sociology, Dr. Conley - Radiology Data Radiology results: report reviewed, image reviewed Disposition Clinical Impression: Closed head injury, Scalp laceration, Rib fracture Disposition: HOME SELF-CARE Condition: Good Instructions (If sedation given, give patient instructions): Rib Fracture (ED), Head Injury (ED) Additional Instructions: Follow-up with your regular physician as directed. Return to the ER immediately if any symptoms worsen, new symptoms arise, or any other problems develop. Apply ice 20 minutes on and off to the sore areas. Take 10 deep breaths per hour while awake as instructed. Follow-up with the regular physician for reevaluation. Ensure that you review the head injury instructions. Stay with somebody at all times for the next 24 hours. Staple removal in 10 days. Is patient prescribed a controlled substance at d/c from ED?: No Referrals: Eugenio Murillo DO [Primary Care Provider] - 09/06/21 8:00 am Time of Disposition: 00:47
== END 2021-09-06 00:59 | disposition home or self-care (01) ==
LOC: EC 22:32
DX: S22.32XA Fracture of one rib, left side, initial encounter for closed fracture (principal); S01.01XA Laceration without foreign body of scalp, initial encounter; I10 Essential (primary) hypertension; I48.91 Unspecified atrial fibrillation; I25.10 Atherosclerotic heart disease of native coronary artery without angina pectoris; E78.5 Hyperlipidemia, unspecified; F32.A Depression, unspecified; F41.9 Anxiety disorder, unspecified; F12.90 Cannabis use, unspecified, uncomplicated; Z87.891 Personal history of nicotine dependence; Z79.01 Long term (current) use of anticoagulants; Z79.02 Long term (current) use of antithrombotics/antiplatelets; Z79.899 Other long term (current) drug therapy; W01.0XXA Fall on same level from slipping, tripping and stumbling without subsequent striking against object, initial encounter
CPT/HCPCS: 12002; 70450; 72125; 99284

== ENCOUNTER 2024-06-01 09:14 | Day surgery (SDC) | payer MEDICARE ==
[~2024-06-01 09:14] MED LIST changes: -LACTATED RINGERS 1,000 ML IV SCH; +LIDOCAINE 1% (10MG/ML) FOR IV START INTRADERMA PRN; -LIDOCAINE 1% 20 ML VIAL (10MG/ML) FOR IV START INTRADERMA PRN
[2024-06-01 09:58] VITALS: TEMP 97.8
[2024-06-01] MEDS: IV FLUID CONTINUATION 1,000 ML IV ONE (10:03)
[2024-06-01] MEDS: LACTATED RINGERS 1,000 ML IV SCH (10:04)
[2024-06-01] MEDS ORDERED: PROPOFOL 10 MG/ML 20 ML VIAL IV ONE (10:34)
--- NOTE | 2024-06-01 11:05 | P.PCN ---
Date of Procedure: 06/01/24 Procedure(s) Performed: BRIEF HISTORY: Patient is a 68-year-old pleasant white male scheduled for an elective colonoscopy as a part of screening for prior history of colon polyps. PROCEDURE PERFORMED: Colonoscopy. PREOPERATIVE DIAGNOSIS: Screening for prior history of colon polyps. IV sedation per Anesthesia. PROCEDURE: After informed consent was obtained, the patient, was brought into the endoscopy unit. IV sedation was administered by Anesthesia under continuous monitoring. Digital rectal examination was normal. Initially the Olympus CF-160 flexible video colonoscope was then inserted in the rectum, gradually advanced into the sigmoid colon and further advancement was not possible. Scope was removed and a pediatric colonoscopy centimeters to the rectum and gradually advanced to the cecum cecum without any difficulty. Careful examination was performed as the scope was gradually being withdrawn. Ileocecal valve and the appendiceal orifice were visualized and appeared normal. Prep was poor in several areas of the colon. Mucosa of the cecum, ascending colon, transverse colon, descending colon, sigmoid colon, and rectum appeared normal. Scattered sigmoid diverticulosis retroflexion was performed in the rectum and grade 2 internal hemorrhoids were seen. The patient tolerated the procedure well. IMPRESSION: Poor prep in several areas of the colon Scattered small diverticulosis Grade 2 internal hemorrhoids RECOMMENDATIONS: Findings of this examination were discussed with the patient as well as his family. He was advised to have repeat screening colonoscopy in 10 years..
[2024-06-01 11:27] VITALS: BP 130/73; PULSE 52; RESP 12
== END 2024-06-01 11:54 | disposition home or self-care (01) ==
LOC: ORWHC2ENDO 09:14
PROVIDERS: ATTEND Internal Medicine Gastroenterology
DX: Z12.11 Encounter for screening for malignant neoplasm of colon (principal); Z86.0100 Personal history of colon polyps, unspecified; K57.30 Diverticulosis of large intestine without perforation or abscess without bleeding; K64.1 Second degree hemorrhoids
CPT/HCPCS: 45378; J2704

== ENCOUNTER → 2024-07-11 | Outpatient (CLI) | payer MEDICARE ==
--- NOTE | 2024-07-11 16:53 | US ---
EXAMINATION TYPE: US kidneys/renal and bladder DATE OF EXAM: 07/11/2024 COMPARISON: CT: 04/15/17 CLINICAL INDICATION: Male, 69 years old with history of R31.21 ASYMPTOMATIC MICROSCOPIC HEMATURIA; he maturia TECHNIQUE: Grayscale imaging of the bilateral kidneys and urinary bladder: FINDINGS: EXAM MEASUREMENTS: Right Kidney: 9.9 x 5.1 x 5.7 cm Left Kidney: 10.5 x 5.5 x 6.0 cm Right Kidney: No hydronephrosis or masses seen Left Kidney: No hydronephrosis or masses seen Bladder: A 1.7 cm bladder wall diverticulum projecting posteriorly towards the right. Otherwise, no d iscrete abnormality is seen. Bilateral Jets seen: No IMPRESSION: 1. No hydronephrosis. 2. A 1.7 cm right-sided bladder wall diverticulum. [facility], Workstation: [email or web address], 07/11/2024 4:51 PM
== END | disposition home or self-care (01) ==
LOC: RADUSWWP 15:11
PROVIDERS: ATTEND Family Medicine
DX: N32.3 Diverticulum of bladder (principal); R31.21 Asymptomatic microscopic hematuria
CPT/HCPCS: 76770

== ENCOUNTER 2024-09-06 11:26 | Emergency (ER) | payer MEDICARE ==
[2024-09-06 11:32] VITALS: RESP 18
--- NOTE | 2024-09-06 12:46 | ED ---
General Adult HPI - General Chief complaint: Wound/Laceration Stated complaint: L hand lac Time Seen by Provider: 09/06/24 12:11 Source: patient, RN notes reviewed Mode of arrival: ambulatory Limitations: no limitations - History of Present Illness Initial comments: 69-year-old male presents to the emergency department for laceration to the left third finger. Patient states that he was taking the covers off of his camper tires. He states that he attempted to catch the cover as it was blowing away and cut his finger on the rim of the vehicle. Patient states that he cleaned the wound and applied Neosporin. He applied pressure with a bandage and bleeding is controlled at this time. He does report that he is on Eliquis. He is unsure when he last had a tetanus vaccine. - Related Data Home Medications Medication Instructions Recorded Confirmed Gabapentin [Neurontin] 400 mg PO TID 09/14/15 06/01/24 oxyCODONE HCL [oxyCODONE HCL (IR)] 10 mg PO DAILY PRN 05/12/16 06/01/24 Atorvastatin [Lipitor] 80 mg PO DAILY 10/03/16 06/01/24 Apixaban [Eliquis] 5 mg PO BID 07/27/18 06/01/24 lisinopriL [Zestril] 10 mg PO DAILY 07/27/18 06/01/24 Metoprolol Tartrate [Lopressor] 12.5 mg PO BID 09/26/19 06/01/24 Sildenafil Citrate 50 - 100 mg PO DAILY PRN 09/26/19 06/01/24 Cholecalciferol (Vitamin D3) 50 mcg PO DAILY 05/30/24 06/01/24 [Vitamin D3 (50 Mcg = 2000 Iu)] amLODIPine [Norvasc] 5 mg PO DAILY 05/30/24 06/01/24 Allergies Allergy/AdvReac Type Severity Reaction Status Date / Time No Known Allergies Allergy Verified 09/06/24 11:32 Review of Systems ROS Statement: Those systems with pertinent positive or pertinent negative responses have been documented in the HPI. ROS Other: All systems not noted in ROS Statement are negative. 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 PAST HX SHINGLES, hx. colon polyps History of Any Multi-Drug Resistant Organisms: None Reported Past Surgical History: Heart Catheterization With Stent, Hernia Repair Additional Past Surgical History / Comment(s): COLONOSCOPY, STATES 2 HEART CATHS WITH STENTS, BONE MARROW BX'S, PICC insertion x 2. AORTAGRAM, ARTHRECTOMY WITH STENT AND BALLOON ANGIOPLASTY RIGHT LEG (05/14/2016) RT TOES AMPUTATED Past Anesthesia/Blood Transfusion Reactions: No Reported Reaction Additional Past Anesthesia/Blood Transfusion Reaction / Comment(s): no hx. blood transfusion reaction Date of Last Stent Placement:: 1999 Past Psychological History: Anxiety, Depression Smoking Status: Former smoker - Past Family History Father Family Medical History: Coronary Artery Disease (CAD) Brother(s) Family Medical History: Coronary Artery Disease (CAD) Sister(s) Family Medical History: CVA/TIA Mother Family Medical History: Hypertension Additional Family Medical History / Comment(s): BLOOD TRANSFUSION REACTION General Exam Limitations: no limitations General appearance: alert, in no apparent distress Head exam: Present: atraumatic, normocephalic, normal inspection Extremities exam: Present: full ROM, normal capillary refill, other (1 cm laceration to the distal left third finger, range of motion intact, radial pulses 2+). Absent: tenderness, pedal edema, joint swelling, calf tenderness Neurological exam: Present: alert, oriented X3 Psychiatric exam: Present: normal affect, normal mood Skin exam: Present: warm, dry, normal color. Absent: intact Course Vital Signs 09/06/24 11:28 Temperature 97.3 F L Pulse Rate 56 L Respiratory 18 Rate Blood Pressure 182/70 O2 Sat by Pulse 96 Oximetry Medical Decision Making - Medical Decision Making Was pt. sent in by a medical professional or institution (, PA, QUALITY ASSURANCE TECH, urgent care, hospital, or assisted...) When possible be specific @ -No Did you speak to anyone other than the patient for history (EMS, parent, family, police, friend...)? What history was obtained from this source @ -No Did you review nursing and triage notes (agree or disagree)? Why? @ -I reviewed and agree with nursing and triage notes Were old charts reviewed (outside hosp., previous admission, EMS record, old EKG, old radiological studies, urgent care reports/EKG's, assisted records)? Report findings @ -No old charts were reviewed Differential Diagnosis (chest pain, altered mental status, abdominal pain women, abdominal pain men, vaginal bleeding, weakness, fever, dyspnea, syncope, headache, dizziness, GI bleed, back pain, seizure, CVA, palpatations, mental health, musculoskeletal)? @ -Laceration, abrasion, skin avulsion, this list is not all inclusive EKG interpreted by me (3pts min.). @ -None X-rays interpreted by me (1pt min.). @ -None done CT interpreted by me (1pt min.). @ -None done U/S interpreted by me (1pt. min.). @ -None done What testing was considered but not performed or refused? (CT, X-rays, U/S, labs)? Why? @ -None What meds were considered but not given or refused? Why? @ -None Did you discuss the management of the patient with other professionals (professionals i.e. , PA, QUALITY ASSURANCE TECH, lab, RT, psych nurse, aids social worker, gis web developer, teacher, evp chief exploration officer, corrections caseworker)? Give summary @ -No Was smoking cessation discussed for >3mins.? @ -No Was critical care preformed (if so, how long)? @ -No Were there social determinants of health that impacted care today? How? (Homelessness, low income, unemployed, alcoholism, drug addiction, transportation, low edu. Level, literacy, decrease access to med. care, long term, rehab)? @ -No Was there de-escalation of care discussed even if they declined (Discuss DNR or withdrawal of care, Hospice)? DNR status @ -No What co-morbidities impacted this encounter? (DM, HTN, Smoking, COPD, CAD, Cancer, CVA, ARF, Chemo, Hep., AIDS, mental health diagnosis, sleep apnea, morbid obesity)? @ -None Was patient admitted / discharged? Hospital course, mention meds given and route, prescriptions, significant lab abnormalities, going to OR and other pertinent info. @ -Discharge. Patient presented the emergency department for laceration of left third finger. Patient was updated on tetanus vaccine. Laceration was repaired with skin adhesive. Advised on wound care. He will be discharged home. Is understanding agreeable plan. Patient stable at time of discharge. Case discussed with Dr. Rob. Undiagnosed new problem with uncertain prognosis? @ -No Drug Therapy requiring intensive monitoring for toxicity (Heparin, Nitro, Insulin, Cardizem)? @ -No Were any procedures done? @ -No Diagnosis/symptom? @ -Laceration Acute, or Chronic, or Acute on Chronic? @ -Acute Uncomplicated (without systemic symptoms) or Complicated (systemic symptoms)? @ -Uncomplicated Side effects of treatment? @ -No Exacerbation, Progression, or Severe Exacerbation? @ -No Poses a threat to life or bodily function? How? (Chest pain, [place], [place], pneumonia, PE, COPD, DKA, ARF, appy, cholecystitis, CVA, Diverticulitis, Homicidal, Suicidal, threat to staff... and all critical care pts) @ -No Disposition Clinical Impression: Laceration Disposition: HOME SELF-CARE Condition: Stable Instructions (If sedation given, give patient instructions): Skin Adhesive Care (ED) Additional Instructions: Please keep wound clean and dry Be on the look out for signs of infection including redness, discharge, increased pain. Please follow-up with your primary care provider. Return to the emergency department for new or worsening symptoms. Is patient prescribed a controlled substance at d/c from ED?: No Referrals: Eugenio Murillo DO [Primary Care Provider] - 1-2 days
[2024-09-06] MEDS: DIPH,PERTUS(ACELL)TETVAC-LF 0.5 ML VIAL IM ONE (12:48)
[2024-09-06] MEDS: TOPICAL SKIN ADHESIVE 1 EACH AMP TOPICAL ONE (12:49)
[2024-09-06 13:08] VITALS: BP 170/86; PULSE 60; TEMP 97.7
== END 2024-09-06 13:00 | disposition home or self-care (01) ==
LOC: EC 11:26
DX: S61.213A Laceration without foreign body of left middle finger without damage to nail, initial encounter (principal); Z79.01 Long term (current) use of anticoagulants; Z87.891 Personal history of nicotine dependence; Z23 Encounter for immunization; W23.1XXA Caught, crushed, jammed, or pinched between stationary objects, initial encounter
CPT/HCPCS: 90471; 90715; 99282